=== PATIENT | female | born 1970 | race Caucasian/White ===

== ENCOUNTER 2016-10-16 23:33 | Emergency (ER) | payer OTHER ==
[2016-10-16 23:43] VITALS: RESP 18
--- NOTE | 2016-10-17 01:27 | XR ---
Chest PA and lateral views INDICATION: Difficulty breathing COMPARISON: CXR 10/03/15 FINDINGS: PA and lateral views of the chest are obtained. The cardiomediastinal silhouette and pulmonary vascularity are normal. Lungs are clear, without consolidation, effusion, or pneumothorax. There are no acute osseous findings. IMPRESSION: No radiographic evidence of acute cardiopulmonary disease.
[2016-10-17 01:45] LABS: Basophils # (A) 0.1 k/uL (0-0.2); Basophils % (A) 1 %; CH 31.4; CHCM 33.9; Eosinophils # (A) 0.2 k/uL (0-0.7); Eosinophils % (A) 2 %; HCT 41.3 % (34.0-46.0); HDW 2.55; HGB 13.6 gm/dL (11.4-16.0); Luc # (Auto) 0.34; Luc % (Auto) 4; Lymphocytes % (A) 21 %; MCH 30.8 pg (25.0-35.0); MCV 93.3 fL (80.0-100.0); Mean Platelet Volume 7.3; Monocytes # (A) 0.4 k/uL (0-1.0); Monocytes % (A) 4 %; Neutrophils # (A) 6.7 k/uL (1.3-7.7); Neutrophils % (A) 69 %; RBC 4.43 m/uL (3.80-5.40); RDW 13.3 % (11.5-15.5); WBC 9.7 k/uL (3.8-10.6); WBC (Perox) 10.42
[2016-10-17 01:58] LABS: ALT 39 U/L (9-52); AST 31 U/L (14-36); Alkaline Phosphatase 78 U/L (38-126); Anion Gap 10 mmol/L; Blood Urea Nitrogen 12 mg/dL (7-17); Calcium 9.3 mg/dL (8.4-10.2); Carbon Dioxide 28 mmol/L (22-30); Chloride 105 mmol/L (98-107); Glucose 81 mg/dL (74-99); Non-African American GFR(MDRD) >60 (>60 ml/min/1.73 sqM); Sodium 143 mmol/L (137-145); Total Bilirubin 0.3 mg/dL (0.2-1.3); Total Protein 6.9 g/dL (6.3-8.2)
[2016-10-17 02:02] LABS: Partial Thromboplastin Time 24.7 sec (22.0-30.0); Prothrombin Time 10.5 sec (9.0-12.0)
[2016-10-17 02:10] LABS: Creatine Kinase 42 U/L (30-135)
[2016-10-17 02:23] LABS: Creatine Kinase MB 0.4 ng/mL (0.0-2.4); Troponin I <0.012 ng/mL (0.000-0.034)
--- NOTE | 2016-10-17 03:46 | ED ---
General Adult HPI - General Chief complaint: ENT Stated complaint: Sore Throat/Sores on Tongue Time Seen by Provider: 10/17/16 00:09 Source: patient Mode of arrival: ambulatory Limitations: no limitations - History of Present Illness Initial comments: Planing about sore throat and facial pain and nose plugged shortness of breath chest discomfort and some difficulty breathing. Denies any fever no chills have some phlegm does bring up some sputum with the cough, stuffy nose. Denies any headache no neck stiffness no abdominal pain no frequency urgency dysuria him a no weakness of upper or lower extremity, no sinus symptoms of TIA or CVA - Related Data Home Medications Medication Instructions Recorded Confirmed ALPRAZolam [Xanax] 1 mg PO Q8HR 02/17/15 10/16/16 HYDROcodone/APAP 10-325MG [[place] 1 tab PO Q4HR PRN 02/17/15 10/16/16 10-325] buPROPion XL [Wellbutrin XL] 150 mg PO HS 02/17/15 10/16/16 Sertraline [Zoloft] 150 mg PO DAILY 10/16/16 10/16/16 Previous Rx's Medication Instructions Recorded Omeprazole [PriLOSEC] 20 mg PO AC-BID 14 Days 10/03/15 Amoxicillin 500 mg PO Q8HR #30 ml 10/17/16 Lidocaine Viscous [Xylocaine 15 ml MUCOUS MEM AC-TID #200 ml 10/17/16 Viscous 2%] Nystatin 100,000 Unit/ml Susp 5 ml PO QID #200 ml 10/17/16 [Mycostatin Oral Susp] Allergies Allergy/AdvReac Type Severity Reaction Status Date / Time prochlorperazine edisylate Allergy Rash/Hives Verified 10/03/15 17:48 [From Compazine] prochlorperazine maleate Allergy Rash/Hives Verified 10/03/15 17:48 [From Compazine] albuterol AdvReac Unknown Verified 10/03/15 17:48 morphine AdvReac Vomiting Verified 10/03/15 17:48 Review of Systems ROS Statement: Those systems with pertinent positive or pertinent negative responses have been documented in the HPI. ROS Other: All systems not noted in ROS Statement are negative. Past Medical History Past Medical History: Rheumatoid Arthritis (RA) Additional Past Medical History / Comment(s): pt. states she recently tested positive for rheumatoid but they are not sure if its lupus or arthritis, sinus problems, overall pain History of Any Multi-Drug Resistant Organisms: None Reported Past Surgical History: Section, Cholecystectomy, Hysterectomy Additional Past Surgical History / Comment(s): total hysterectomy 2013 Past Anesthesia/Blood Transfusion Reactions: No Reported Reaction Additional Past Anesthesia/Blood Transfusion Reaction / Comment(s): pt. states after her last surgery pt. states the anesethilogist asked if she ever had a sleep study done Past Psychological History: Anxiety, Depression Smoking Status: Former smoker Past Alcohol Use History: None Reported Past Drug Use History: None Reported Additional Drug Use History / Comment(s): pt. states she quit smoking 6 months ago - Past Family History Mother History Unknown: Yes Family Medical History: Cancer, Chest Pain / Angina, COPD, Coronary Artery Disease (CAD) Additional Family Medical History / Comment(s): brain aneurysms, colon cancer, tachycardia, mother's sisters are diabetic Father History Unknown: Yes Family Medical History: COPD Additional Family Medical History / Comment(s): severe COPD, depression General Exam - General Exam Comments Initial Comments: General: The patient is awake and alert, in no distress, and does not appear acutely ill. Skin: Skin is warm and dry and no rashes or lesions are noted. Eye: Pupils are equal, round and reactive to light, extra-ocular movements are intact; there is normal conjunctiva bilaterally. Ears, nose, mouth and throat: Exam is consistent with a sinusitis and rhinitis, noticed a lesion on one side of the tongue, thrush? Neck: The neck is supple, there is no tenderness or JVD. Cardiovascular: There is a regular rate and rhythm. No murmur, rub or gallop is appreciated. Respiratory: To auscultation bilateral, no wheezing no rhonchi no distress respiratory khanna noticed Gastrointestinal: Soft, non-distended, non-tender abdomen without masses or organomegaly noted. There is no rebound or guarding present. Bowel sounds are unremarkable. Back: There is no tenderness to palpation in the midline. There is no obvious deformity. Musculoskeletal: Normal ROM, no tenderness, There is no pedal edema. There is no calf tenderness or swelling. No cords were appreciated. Neurological: CN II-XII intact, Cranial nerves III through XII are intact. There are no obvious motor or sensory deficits. Coordination appears grossly intact. Speech is normal. Psychiatric: Cooperative, appropriate mood & affect, normal judgment. Limitations: no limitations Course Vital Signs 10/16/16 10/17/16 23:40 03:21 Temperature 98.2 F 97.6 F Pulse Rate 85 64 Respiratory 18 18 Rate Blood Pressure 129/87 139/78 O2 Sat by Pulse 96 98 Oximetry EKG Findings - EKG Comments: EKG Findings:: HEENT rate is normal sinus rhythm ventricular rate is 67 DE interval is 148 QRS duration is 86 QT/QTc is 48/431 review of this EKG showed some T-wave inversion in lead 3 OR lesions are within normal range Medical Decision Making - Lab Data Result diagrams: 10/17/16 01:33 10/17/16 01:33 Lab Results 10/17/16 10/17/16 10/17/16 Range/Units 01:33 01:33 01:33 WBC 9.7 (3.8-10.6) k/uL RBC 4.43 (3.80-5.40) m/uL Hgb 13.6 (11.4-16.0) gm/dL Hct 41.3 (34.0-46.0) % MCV 93.3 (80.0-100.0) fL MCH 30.8 (25.0-35.0) pg MCHC 33.0 (31.0-37.0) g/dL RDW 13.3 (11.5-15.5) % Plt Count 256 (150-450) k/uL Neutrophils % 69 % Lymphocytes % 21 % Monocytes % 4 % Eosinophils % 2 % Basophils % 1 % Neutrophils # 6.7 (1.3-7.7) k/uL Lymphocytes # 2.0 (1.0-4.8) k/uL Monocytes # 0.4 (0-1.0) k/uL Eosinophils # 0.2 (0-0.7) k/uL Basophils # 0.1 (0-0.2) k/uL PT (9.0-12.0) sec INR (<1.1) APTT (22.0-30.0) sec D-Dimer (<0.60) mg/L FEU Sodium 143 (137-145) mmol/L Potassium 4.0 (3.5-5.1) mmol/L Chloride 105 (98-107) mmol/L Carbon Dioxide 28 (22-30) mmol/L Anion Gap 10 mmol/L BUN 12 (7-17) mg/dL Creatinine 0.80 (0.52-1.04) mg/dL Est GFR (MDRD) Af Amer >60 (>60 ml/min/1.73 sqM) Est GFR (MDRD) Non-Af >60 (>60 ml/min/1.73 sqM) Glucose 81 (74-99) mg/dL Calcium 9.3 (8.4-10.2) mg/dL Total Bilirubin 0.3 (0.2-1.3) mg/dL AST 31 (14-36) U/L ALT 39 (9-52) U/L Alkaline Phosphatase 78 (38-126) U/L Total Creatine Kinase 42 (30-135) U/L CK-MB (CK-2) 0.4 (0.0-2.4) ng/mL CK-MB (CK-2) Rel Index 1.0 Troponin I <0.012 (0.000-0.034) ng/mL Total Protein 6.9 (6.3-8.2) g/dL Albumin 4.2 (3.5-5.0) g/dL Influenza Type A RNA (Not Detectd) Influenza Type B (PCR) (Not Detectd) Group A Strep Rapid (Negative) 10/17/16 10/17/16 10/17/16 Range/Units 01:33 01:33 01:33 WBC (3.8-10.6) k/uL RBC (3.80-5.40) m/uL Hgb (11.4-16.0) gm/dL Hct (34.0-46.0) % MCV (80.0-100.0) fL MCH (25.0-35.0) pg MCHC (31.0-37.0) g/dL RDW (11.5-15.5) % Plt Count (150-450) k/uL Neutrophils % % Lymphocytes % % Monocytes % % Eosinophils % % Basophils % % Neutrophils # (1.3-7.7) k/uL Lymphocytes # (1.0-4.8) k/uL Monocytes # (0-1.0) k/uL Eosinophils # (0-0.7) k/uL Basophils # (0-0.2) k/uL PT 10.5 (9.0-12.0) sec INR 1.0 (<1.1) APTT 24.7 (22.0-30.0) sec D-Dimer 0.26 (<0.60) mg/L FEU Sodium (137-145) mmol/L Potassium (3.5-5.1) mmol/L Chloride (98-107) mmol/L Carbon Dioxide (22-30) mmol/L Anion Gap mmol/L BUN (7-17) mg/dL Creatinine (0.52-1.04) mg/dL Est GFR (MDRD) Af Amer (>60 ml/min/1.73 sqM) Est GFR (MDRD) Non-Af (>60 ml/min/1.73 sqM) Glucose (74-99) mg/dL Calcium (8.4-10.2) mg/dL Total Bilirubin (0.2-1.3) mg/dL AST (14-36) U/L ALT (9-52) U/L Alkaline Phosphatase (38-126) U/L Total Creatine Kinase (30-135) U/L CK-MB (CK-2) (0.0-2.4) ng/mL CK-MB (CK-2) Rel Index Troponin I (0.000-0.034) ng/mL Total Protein (6.3-8.2) g/dL Albumin (3.5-5.0) g/dL Influenza Type A RNA Not Detected (Not Detectd) Influenza Type B (PCR) Not Detected (Not Detectd) Group A Strep Rapid Negative (Negative) Disposition Clinical Impression: Sinusitis, Rhinitis, Thrush Disposition: HOME SELF-CARE Condition: Good Instructions: Sinusitis (ED) Prescriptions: Amoxicillin 500 mg PO Q8HR #30 ml Lidocaine Viscous [Xylocaine Viscous 2%] 15 ml MUCOUS MEM AC-TID #200 ml Nystatin 100,000 Unit/ml Susp [Mycostatin Oral Susp] 5 ml PO QID #200 ml
[2016-10-17 04:06] VITALS: BP 119/67; PULSE 70; TEMP 97.1
== END 2016-10-17 04:06 | disposition home or self-care (01) ==
LOC: EC 23:33
DX: J32.9 Chronic sinusitis, unspecified (principal); J31.0 Chronic rhinitis; B37.9 Candidiasis, unspecified; R07.89 Other chest pain; Z88.8 Allergy status to other drugs, medicaments and biological substances; Z88.5 Allergy status to narcotic agent; F41.9 Anxiety disorder, unspecified; F32.9 Major depressive disorder, single episode, unspecified; Z87.891 Personal history of nicotine dependence; Z79.899 Other long term (current) drug therapy
CPT/HCPCS: 36415; 71020; 80053; 82550; 82553; 84484; 85025; 85379; 85610; 85730; 87070; 87081; 87205; 87430; 87502; 93005; 99284

== ENCOUNTER 2017-08-01 15:06 | Emergency (ER) | payer OTHER ==
[2017-08-01 15:15] VITALS: TEMP 97.9
[2017-08-01] MEDS ORDERED: RX INFO: IV CONTRAST WAS GIVEN 1 EACH MISC MISCELLANE PRN (16:00)
--- NOTE | 2017-08-01 16:10 | ED ---
URI HPI - General Chief Complaint: Upper Respiratory Infection Stated Complaint: Cough Time Seen by Provider: 08/01/17 15:36 Source: patient Mode of arrival: ambulatory Limitations: no limitations - History of Present Illness Initial Comments: 47-year-old female patient presents to the emergency department today for complaints of cough and upper respiratory symptoms. Patient states that she has been ill since 07/25/2017. States that it started with sore throat, nasal congestion, and dry cough. She states that the cough has persisted. She states now she coughs so much it hurts in her her chest and back when coughing. She states that the cough is also causing headaches. States that she has a pain to the base of her left skull. Patient states she has a known brain aneurysm on the left side. She states she has had a couple episodes of dizziness over the last few days as well. She denies any visual disturbance, weakness, numbness, or tingling. Denies any confusion or altered mental status. She denies having any fevers with this illness. Patient denies any recent rash, shortness breath, chest pain, abdominal pain, nausea, vomiting, diarrhea, constipation, back pain, numbness, tingling, hematuria, dysuria, urinary urgency, urinary frequency, or any other complaints. - Related Data Home Medications Medication Instructions Recorded Confirmed ALPRAZolam [Xanax] 1 mg PO Q8HR 02/17/15 10/16/16 HYDROcodone/APAP 10-325MG [[place] 1 tab PO Q4HR PRN 02/17/15 10/16/16 10-325] buPROPion XL [Wellbutrin XL] 150 mg PO HS 02/17/15 10/16/16 Sertraline [Zoloft] 150 mg PO DAILY 10/16/16 10/16/16 Previous Rx's Medication Instructions Recorded Omeprazole [PriLOSEC] 20 mg PO AC-BID 14 Days cap 10/03/15 Amoxicillin 500 mg PO Q8HR #30 ml 10/17/16 Lidocaine Viscous 2% [Xylocaine 15 ml MUCOUS MEM AC-TID #200 ml 10/17/16 Viscous] Nystatin 100,000 Unit/ml Susp 5 ml PO QID #200 ml 10/17/16 [Mycostatin Oral Susp] Promethaz-Cod 6.25-10 mg/5 ml 5 ml PO Q6HR PRN #100 ml 08/01/17 [Phenergan with Codeine] predniSONE 50 mg PO DAILY #5 tablet 08/01/17 Allergies Allergy/AdvReac Type Severity Reaction Status Date / Time prochlorperazine edisylate Allergy Rash/Hives Verified 08/01/17 15:15 [From Compazine] prochlorperazine maleate Allergy Rash/Hives Verified 08/01/17 15:15 [From Compazine] albuterol AdvReac Unknown Verified 08/01/17 15:15 morphine AdvReac Vomiting Verified 08/01/17 15:15 Review of Systems ROS Statement: Those systems with pertinent positive or pertinent negative responses have been documented in the HPI. ROS Other: All systems not noted in ROS Statement are negative. Past Medical History Past Medical History: Rheumatoid Arthritis (RA) Additional Past Medical History / Comment(s): pt. states she recently tested positive for rheumatoid but they are not sure if its lupus or arthritis, sinus problems, overall pain History of Any Multi-Drug Resistant Organisms: None Reported Past Surgical History: Section, Cholecystectomy, Hysterectomy Additional Past Surgical History / Comment(s): total hysterectomy 2013 Past Anesthesia/Blood Transfusion Reactions: No Reported Reaction Additional Past Anesthesia/Blood Transfusion Reaction / Comment(s): pt. states after her last surgery pt. states the anesethilogist asked if she ever had a sleep study done Past Psychological History: Anxiety, Depression Smoking Status: Former smoker Past Alcohol Use History: None Reported Past Drug Use History: None Reported - Past Family History Mother History Unknown: Yes Family Medical History: Cancer, Chest Pain / Angina, COPD, Coronary Artery Disease (CAD) Additional Family Medical History / Comment(s): brain aneurysms, colon cancer, tachycardia, mother's sisters are diabetic Father History Unknown: Yes Family Medical History: COPD Additional Family Medical History / Comment(s): severe COPD, depression General Exam Limitations: no limitations General appearance: alert, in no apparent distress, other (This is a well- developed, well-nourished adult female patient in no acute distress. Vital signs upon presentation were temperature 97.9F, pulse 71, respirations 18, blood pressure 154/67, pulse ox 96% on room air.) Head exam: Present: atraumatic, normocephalic, normal inspection Eye exam: Present: normal appearance, PERRL, EOMI. Absent: scleral icterus, conjunctival injection, nystagmus, periorbital swelling ENT exam: Present: normal exam, normal oropharynx, mucous membranes moist Neck exam: Present: normal inspection. Absent: tenderness, meningismus, lymphadenopathy Respiratory exam: Present: normal lung sounds bilaterally. Absent: respiratory distress, wheezes, rales, rhonchi, stridor Cardiovascular Exam: Present: regular rate, normal rhythm, normal heart sounds. Absent: systolic murmur, diastolic murmur, rubs, gallop, clicks GI/Abdominal exam: Present: soft, normal bowel sounds. Absent: distended, tenderness, guarding, rebound, rigid Neurological exam: Present: alert, oriented X3, CN II-XII intact, other ( Strength in all 4 extremities is 5/5.) Psychiatric exam: Present: normal affect, normal mood Skin exam: Present: warm, dry, intact, normal color. Absent: rash Course Vital Signs 08/01/17 15:10 Temperature 97.9 F Pulse Rate 71 Respiratory 18 Rate Blood Pressure 154/67 O2 Sat by Pulse 96 Oximetry Medical Decision Making - Medical Decision Making 47-year-old female patient presented to the emergency department today for complaints of upper respiratory symptoms and cough 1 week. Patient is also complaining of headaches at the left occipital region. Lungs are clear to auscultation with good air movement. Patient is neurologically intact. Chest x -ray was performed and did show no acute cardiopulmonary process. Patient was concerned about her headaches as she does have a history of aneurysm. 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 We did receive reports from the [facility] where patient had an MRA done in November, this did show a tiny 2 mm aneurysm versus infundibulum along the M1 segment of the left MCA at the origin of the anterior temporal polar branch. This has been stable compared to prior exams. I did discuss these results with the patient. As for her upper respiratory infection I told her that this is most likely related to a virus. She will be treated for acute bronchitis as her cough is persistent. She will be given on steroid and cough medication. I instructed her that she must follow -up with her primary care physician for further evaluation as soon as possible. She is instructed to return here immediate he should her she develop any new, worsening, or concerning symptoms. She verbalizes understanding and agrees with this plan. - Radiology Data Radiology results: report reviewed, image reviewed Two-view x-ray of the chest shows a heart and mediastinum are normal. Lungs are clear. Costophrenic angles are clear. There are no hilar masses. Bony thorax is intact. Impression by Dr. Hoyos shows normal chest with no change. CT of the brain with contrast is performed, the ventricles are of normal size. There is no mass effect or midline shift. There is no sign of intracranial hemorrhage. The calvarium is intact. I see no pathologic brain parenchyma enhancement. The patient has a history of any aneurysm. The slight prominence of the tip of the basilar artery that could be a small aneurysm. I have no old exam to compare. Impression by Dr. 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 No acute intracranial abnormality. Old exam comparison could be helpful. No evidence of intracranial hemorrhage or infarct. Disposition Clinical Impression: Acute bronchitis Disposition: HOME SELF-CARE Condition: Good Instructions: Acute Bronchitis (ED) Additional Instructions: Follow-up with her primary care physician for further evaluation as soon as possible. Take medications as directed. Return here immediately for any new, worsening, or concerning symptoms. Prescriptions: predniSONE 50 mg PO DAILY #5 tablet Promethaz-Cod 6.25-10 mg/5 ml [Phenergan with Codeine] 5 ml PO Q6HR PRN #100 ml PRN Reason: Cough Referrals: None,Stated [Primary Care Provider] - 1-2 days Time of Disposition: 18:26
--- NOTE | 2017-08-01 16:47 | CT ---
EXAMINATION TYPE: CT brain w con DATE OF EXAM: 08/01/2017 COMPARISON: NONE HISTORY: Known brain aneurysm. CT DLP: 1026.1 mGycm Automated exposure control for dose reduction was used. CONTRAST: Performed with IV Contrast, patient injected with 100ml mL of Omnipaque 300. FINDINGS: The ventricles have normal size. There is no mass effect nor midline shift. There is no sign of intra cranial hemorrhage. The calvarium is intact. I see no pathologic brain parenchyma enhancement. The pa enrrique has a history of an aneurysm. This slight prominence of the tip of the basilar artery that coul d be a small aneurysm. I have no old exam to compare. 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 NO ACUTE INTRACRANIAL ABNORMALITY. OLD EXAM COMPARISON WOULD BE HELPFUL. NO EVIDENCE OF INTRACRANIAL HEMORRHAGE OR INFARCT.
--- NOTE | 2017-08-01 16:49 | XR ---
EXAMINATION TYPE: XR chest 2V DATE OF EXAM: 08/01/2017 COMPARISON: 10/17/2016 HISTORY: Difficulty breathing TECHNIQUE: Frontal and lateral views of the chest are obtained. FINDINGS: Heart and mediastinum are normal. Lungs are clear. Costophrenic angles are clear. There ar e no hilar masses. Bony thorax is intact. IMPRESSION: Normal chest. No change.
[2017-08-01 18:37] VITALS: BP 147/99; PULSE 75; RESP 16
== END 2017-08-01 18:37 | disposition home or self-care (01) ==
LOC: EC 15:06
DX: J20.9 Acute bronchitis, unspecified (principal); F41.9 Anxiety disorder, unspecified; F32.9 Major depressive disorder, single episode, unspecified; Z86.69 Personal history of other diseases of the nervous system and sense organs; Z87.891 Personal history of nicotine dependence; Z79.899 Other long term (current) drug therapy; Z88.8 Allergy status to other drugs, medicaments and biological substances; Z88.5 Allergy status to narcotic agent
CPT/HCPCS: 99284 ×2; 71046; 70460; Q9967

== ENCOUNTER 2018-01-09 01:01 | Emergency (ER) | payer OTHER ==
[2018-01-09 02:04] LABS: Basophils % (A) 1 %; Eosinophils # (A) 0.2 k/uL (0-0.7); Eosinophils % (A) 3 %; HCT 38.8 % (34.0-46.0); HGB 12.9 gm/dL (11.4-16.0); Lymphocytes # (A) 2.5 k/uL (1.0-4.8); Lymphocytes % (A) 38 %; MCH 30.1 pg (25.0-35.0); MCHC 33.2 g/dL (31.0-37.0); MCV 90.7 fL (80.0-100.0); Mean Platelet Volume 6.9; Monocytes # (A) 0.4 k/uL (0-1.0); Monocytes % (A) 6 %; Neutrophils # (A) 3.4 k/uL (1.3-7.7); Neutrophils % (A) 51 %; Platelet Count 236 k/uL (150-450); RBC 4.28 m/uL (3.80-5.40); RDW 12.9 % (11.5-15.5); WBC 6.6 k/uL (3.8-10.6)
[2018-01-09 02:19] LABS: Albumin 4.1 g/dL (3.5-5.0); Calcium 9.3 mg/dL (8.4-10.2); Potassium 4.1 mmol/L (3.5-5.1); Total Bilirubin 0.1 mg/dL (0.2-1.3); Total Protein 6.4 g/dL (6.3-8.2)
[2018-01-09] MEDS ORDERED: KETOROLAC 30 MG/ML 1 ML VIAL IVP STA (02:19)
--- NOTE | 2018-01-09 02:22 | XR ---
EXAMINATION TYPE: XR knee complete LT DATE OF EXAM: 01/09/2018 COMPARISON: NONE HISTORY: Knee pain TECHNIQUE: 3 views FINDINGS: There is no fracture nor dislocation. Joint spaces are normal. There is no sign of joint ef fusion. IMPRESSION: Normal left knee
[2018-01-09] MEDS ORDERED: ONDANSETRON 4 MG/2 ML VIAL IVP STA (02:33)
--- NOTE | 2018-01-09 02:53 | ED ---
Extremity Problem HPI - General Chief complaint: Extremity Problem,Nontraumatic Stated complaint: Rt foot swelling, high BP Time Seen by Provider: 01/09/18 01:11 Source: patient Mode of arrival: wheelchair Limitations: no limitations - History of Present Illness Initial comments: This patient is a 47-year-old woman who presents to be evaluated for a number of symptoms that have been going on over the past week. The patient has had a couple of days of right ankle swelling and some fullness there. She also is having left knee pain, and does not recall a definite trauma there. She also has noted that her blood pressure has been high. The patient states that she is in the process of working to find a new primary physician, as her previous one is not seeing her anymore. She states that a number of her medications had run out. The patient denies any chest symptoms. MD Complaint: extremity pain, extremity swelling Onset/Timin -: days(s) Location: right History of Same: No Radiation: none Quality: dull Consistency: constant Improves with: nothing Worsens with: nothing - Related Data Home Medications Medication Instructions Recorded Confirmed ALPRAZolam [Xanax] 1 mg PO Q8HR 02/17/15 10/16/16 HYDROcodone/APAP 10-325MG [[place] 1 tab PO Q4HR PRN 02/17/15 10/16/16 10-325] buPROPion XL [Wellbutrin XL] 150 mg PO HS 02/17/15 10/16/16 Sertraline [Zoloft] 150 mg PO DAILY 10/16/16 10/16/16 Previous Rx's Medication Instructions Recorded Omeprazole [PriLOSEC] 20 mg PO AC-BID 14 Days cap 10/03/15 Amoxicillin 500 mg PO Q8HR #30 ml 10/17/16 Lidocaine Viscous 2% [Xylocaine 15 ml MUCOUS MEM AC-TID #200 ml 10/17/16 Viscous] Nystatin 100,000 Unit/ml Susp 5 ml PO QID #200 ml 10/17/16 [Mycostatin Oral Susp] Promethaz-Cod 6.25-10 mg/5 ml 5 ml PO Q6HR PRN #100 ml 08/01/17 [Phenergan with Codeine] predniSONE 50 mg PO DAILY #5 tablet 08/01/17 Hydrochlorothiazide 12.5 mg PO DAILY #15 capsule 01/09/18 Allergies Allergy/AdvReac Type Severity Reaction Status Date / Time prochlorperazine edisylate Allergy Rash/Hives Verified 01/09/18 01:07 [From Compazine] prochlorperazine maleate Allergy Rash/Hives Verified 01/09/18 01:07 [From Compazine] albuterol AdvReac Unknown Verified 01/09/18 01:07 morphine AdvReac Vomiting Verified 01/09/18 01:07 Review of Systems ROS Statement: Those systems with pertinent positive or pertinent negative responses have been documented in the HPI. ROS Other: All systems not noted in ROS Statement are negative. Constitutional: Denies: fever, chills, weakness Eyes: Denies: vision change Respiratory: Denies: cough, dyspnea Cardiovascular: Reports: as per HPI, edema. Denies: chest pain, palpitations, dyspnea on exertion, orthopnea, syncope Gastrointestinal: Denies: abdominal pain, vomiting, diarrhea Genitourinary: Denies: dysuria, hematuria Musculoskeletal: Reports: joint swelling (Right ankle ), arthralgia (left knee) . Denies: back pain Skin: Denies: rash Neurological: Denies: headache, weakness, numbness Psychiatric: Reports: anxiety Past Medical History Past Medical History: Rheumatoid Arthritis (RA) Additional Past Medical History / Comment(s): pt. states she recently tested positive for rheumatoid but they are not sure if its lupus or arthritis, sinus problems, overall pain. brain aneurysm. History of Any Multi-Drug Resistant Organisms: None Reported Past Surgical History: Section, Cholecystectomy, Hysterectomy Additional Past Surgical History / Comment(s): total hysterectomy 2013 Past Anesthesia/Blood Transfusion Reactions: No Reported Reaction Additional Past Anesthesia/Blood Transfusion Reaction / Comment(s): pt. states after her last surgery pt. states the anesethilogist asked if she ever had a sleep study done Past Psychological History: Anxiety, Depression Smoking Status: Former smoker Past Alcohol Use History: None Reported Past Drug Use History: None Reported - Past Family History Mother History Unknown: Yes Family Medical History: Cancer, Chest Pain / Angina, COPD, Coronary Artery Disease (CAD) Additional Family Medical History / Comment(s): brain aneurysms, colon cancer, tachycardia, mother's sisters are diabetic Father History Unknown: Yes Family Medical History: COPD Additional Family Medical History / Comment(s): severe COPD, depression General Exam Limitations: no limitations General appearance: alert, in no apparent distress, obese Head exam: Present: atraumatic, normocephalic Eye exam: Present: normal appearance. Absent: scleral icterus, conjunctival injection ENT exam: Present: normal oropharynx Neck exam: Present: normal inspection Respiratory exam: Present: normal lung sounds bilaterally. Absent: respiratory distress, wheezes, rales, rhonchi, stridor Cardiovascular Exam: Present: regular rate, normal rhythm, normal heart sounds. Absent: systolic murmur, diastolic murmur, rubs, gallop GI/Abdominal exam: Present: soft. Absent: distended, tenderness, guarding, rebound, rigid, pulsatile mass Extremities exam: Present: normal inspection, normal capillary refill, pedal edema (There is mild edema at the ankles, right greater than left.), other ( Patient has slightly decreased flexion of left ankle. There is no evident bony deformity. No point tenderness.). Absent: full ROM, tenderness, calf tenderness Back exam: Present: normal inspection. Absent: CVA tenderness (R), CVA tenderness (L) Neurological exam: Present: alert. Absent: motor sensory deficit Skin exam: Present: warm, dry, intact, normal color. Absent: rash Course Vital Signs 01/09/18 01/09/18 01:04 03:08 Temperature 98.3 F 97.2 F L Pulse Rate 94 80 Respiratory 16 18 Rate Blood Pressure 154/83 133/80 O2 Sat by Pulse 99 96 Oximetry Medical Decision Making - Lab Data Result diagrams: 01/09/18 01:46 01/09/18 01:46 Lab Results 01/09/18 01/09/18 01/09/18 Range/Units 01:46 01:46 01:46 WBC 6.6 (3.8-10.6) k/uL RBC 4.28 (3.80-5.40) m/uL Hgb 12.9 (11.4-16.0) gm/dL Hct 38.8 (34.0-46.0) % MCV 90.7 (80.0-100.0) fL MCH 30.1 (25.0-35.0) pg MCHC 33.2 (31.0-37.0) g/dL RDW 12.9 (11.5-15.5) % Plt Count 236 (150-450) k/uL Neutrophils % 51 % Lymphocytes % 38 % Monocytes % 6 % Eosinophils % 3 % Basophils % 1 % Neutrophils # 3.4 (1.3-7.7) k/uL Lymphocytes # 2.5 (1.0-4.8) k/uL Monocytes # 0.4 (0-1.0) k/uL Eosinophils # 0.2 (0-0.7) k/uL Basophils # 0.0 (0-0.2) k/uL D-Dimer 0.26 (<0.60) mg/L FEU Sodium 141 (137-145) mmol/L Potassium 4.1 (3.5-5.1) mmol/L Chloride 103 (98-107) mmol/L Carbon Dioxide 27 (22-30) mmol/L Anion Gap 11 mmol/L BUN 20 H (7-17) mg/dL Creatinine 0.90 (0.52-1.04) mg/dL Est GFR (CKD-EPI)AfAm 87 (>60 ml/min/1.73 sqM) Est GFR (CKD-EPI)NonAf 76 (>60 ml/min/1.73 sqM) Glucose 104 H (74-99) mg/dL Calcium 9.3 (8.4-10.2) mg/dL Total Bilirubin 0.1 L (0.2-1.3) mg/dL AST 22 (14-36) U/L ALT 38 (9-52) U/L Alkaline Phosphatase 64 (38-126) U/L Total Protein 6.4 (6.3-8.2) g/dL Albumin 4.1 (3.5-5.0) g/dL Disposition Clinical Impression: Hypertension, Knee pain Disposition: HOME SELF-CARE Condition: Fair Instructions: Knee Pain (ED), Hypertension (ED) Prescriptions: Hydrochlorothiazide 12.5 mg PO DAILY #15 capsule Is patient prescribed a controlled substance at d/c from ED?: No Referrals: Katrina Bonner MD [STAFF PHYSICIAN] - 1-2 days
[2018-01-09 03:09] VITALS: BP 133/80; PULSE 80; RESP 18; TEMP 97.2
== END 2018-01-09 03:09 | disposition home or self-care (01) ==
LOC: EC 01:01
DX: M25.562 Pain in left knee (principal); I10 Essential (primary) hypertension; M79.89 Other specified soft tissue disorders; M25.471 Effusion, right ankle; M06.9 Rheumatoid arthritis, unspecified; F41.9 Anxiety disorder, unspecified; F32.9 Major depressive disorder, single episode, unspecified; Z87.891 Personal history of nicotine dependence; Z79.899 Other long term (current) drug therapy; Z88.8 Allergy status to other drugs, medicaments and biological substances; Z88.5 Allergy status to narcotic agent
CPT/HCPCS: 36415; 85379; 80053; 85025; 73562; 99283; 96374; 96375; J2405; J1885

== ENCOUNTER → 2018-09-03 | Outpatient (CLI) | payer OTHER ==
--- NOTE | 2018-09-04 09:11 | MR ---
EXAMINATION TYPE: MR angio head wo con DATE OF EXAM: 09/03/2018 COMPARISON: Outside MRI/MRA of brain November 13, 2015 HISTORY: Cerebral aneurysm, nonruptured TECHNIQUE: Time of flight images focusing on the [place] were performed without contrast.. 2-D and 3-D postprocessing imaging is performed. FINDINGS: A dominant left vertebral artery is redemonstrated. Vertebral arteries are patent to basila r junction. There is no significant focal stenosis or aneurysmal change in the posterior circulation. There are hypoplastic posterior communicating arteries redemonstrated bilaterally. Images of the anterior circulation show patent anterior communicating artery. There is no significant focal stenosis or new aneurysmal change. There is stable prominence in the distal left MCA bifurcati on measuring 2.0 mm anteriorly on image 102 which correlates with branching vessel with subsequent br anching into 2 smaller vessels. No significant change in appearance from prior study. IMPRESSION: Overall stable findings, prominence at left MCA trifurcation in which 2.0 mm aneurysm is not entirely excluded though I favor infundibulum or prominent branching. No new aneurysm is seen.
== END | disposition home or self-care (01) ==
LOC: RADMRIMAIN 11:46
PROVIDERS: ATTEND Neurological Surgery
DX: Z09 Encounter for follow-up examination after completed treatment for conditions other than malignant neoplasm (principal); Z86.79 Personal history of other diseases of the circulatory system
CPT/HCPCS: 70544

== ENCOUNTER → 2018-09-08 | Outpatient (CLI) | payer OTHER ==
--- NOTE | 2018-09-08 17:09 | CONS ---
CONSULTATION This is a consultation for sleep apnea. Estrella is a 48-year-old, obese female patient coming in for sleep apnea evaluation. She has symptoms of sleep apnea including snoring, waking up choking and gasping for air. Restless at nighttime. She grinds her teeth. She wakes up with dry mouth. She has occasional nighttime palpitation and heartburn. She wakes up tired and having difficulty with memory concentration and sleepiness during the day. She is unemployed. Her is disabled. They live in a house. Her sleep hygiene has progressively gotten worse. She has spent lot of time on TV and doing different other activities mainly electronics and she got to the point where she is sleeping late and she is sleeping as far as 5:00 a.m. in the morning and she is getting up 1:00 pm/noon time. She would like to gradually go back to her original sleep schedule. She has history of depression. She is on a combination of Zoloft, BuSpar and Celexa. She has chronic pain related to osteoarthritis and she is on [place] for pain control. She does not fall asleep while driving her car. Current [place] score is at 8. Her weight is up by around 63 pounds over the past 5 years. She drinks 2-3 cups of coffee during the day to keep herself quite stimulated. PAST MEDICAL HISTORY: 1. Obesity. 2. Depression. 3. Hypertension. 4. Plantar fasciitis. 5. Degenerative arthritis. 6. Atopic disease and environmental allergies. 7. Chronic bronchitis. PAST SURGICAL HISTORY: Includes hysterectomy, and a cholecystectomy. DRUG ALLERGIES: TO COMPAZINE AND . SOCIAL HISTORY: She is an ex-smoker. She has a 30 pack year smoking history. She quit smoking for now. No history of alcohol. No history of IV drugs. FAMILY HISTORY: Her mother had colon cancer. She also had brain aneurysm. Her mother also had cardiac problems. No other sleeping disorder in the family. OUTPATIENT MEDICATION LIST: Includes [place] 10, 4 times a day. Ibuprofen 600 4 times a day. Zoloft 100 mg p.o. daily, citalopram 40 mg p.o. daily, citalopram 10 mg p.o. daily, BuSpar exact dose is not known. Omeprazole 20 mg p.o. daily, she is also on a blood pressure medication. She takes [id number] Zyrtec. REVIEW OF SYSTEMS: 12-point review of system was done. Positive findings are mentioned above in history of present illness. Of significance is the absence of any nighttime chest pain or shortness of breath. No dreams. No hallucinations. No cataplexy. No sleep paralysis. No falls. No head injuries. No closed head injury. Note that the patient has gained significant amount of weight. She was in the low 200. She gained up to 263 and currently she is down to 244. BP is 119/90, pulse 92, respirations 16, temperature 98.1, saturation 98% on room air. Height 5 feet, 4 inches, weight is 244, and neck size 15 and 0.5 inches, BMI 41.8. Weight is 244. GENERAL APPEARANCE: Calm, comfortable. Head is atraumatic, normocephalic. NECK: Supple. Mallampati class IV. There is no goiter or neck mass. LUNGS: Clear to auscultation. HEART: Sounds regular rate and rhythm. Normal S1, S2. No S3. No murmurs. ABDOMEN: Soft, nontender. No organomegaly. EXTREMITIES: No edema. No cyanosis or clubbing. NEUROLOGIC: Alert and oriented x3. No focal neurological deficits. PSYCHIATRIC: Negative for active anxiety or depression at this point. SKIN: Negative for any wounds or ulceration. IMPRESSION: 1. Obstructive sleep apnea clinically suspected that needs to be further studied. 2. Hypersomnia. [place] score of 8. 3. Anxiety/depression. 4. Obesity with a BMI of 41.8. 5. Hypertension. 6. Plantar fasciitis. 7. Degenerative arthritis. 8. History of environmental allergies. PLAN: 1. Encourage weight loss. 2. Implement good sleep hygiene measures. 3. Proceed with a screening polysomnogram looking for any significant sleep breathing disorder and treat accordingly. The patient was set up to undergo a polysomnogram many years back. However due to insurance issues, the study was not done. 4. She was asked to maintain a regular sleep-wake cycle. 5. She was asked to eliminate TV watching in her bedroom environment. 6. We will continue to follow. MMODL / IJN: [id number] /
== END ==
LOC: SLEEP 13:50
PROVIDERS: ATTEND Internal Medicine Critical Care Medicine
DX: G47.33 Obstructive sleep apnea (adult) (pediatric) (principal); F32.9 Major depressive disorder, single episode, unspecified; F41.9 Anxiety disorder, unspecified; E66.9 Obesity, unspecified; I10 Essential (primary) hypertension; M72.2 Plantar fascial fibromatosis; M19.90 Unspecified osteoarthritis, unspecified site; Z91.048 Other nonmedicinal substance allergy status; Z68.41 Body mass index [BMI] 40.0-44.9, adult; Z79.899 Other long term (current) drug therapy; Z79.891 Long term (current) use of opiate analgesic; Z79.1 Long term (current) use of non-steroidal anti-inflammatories (NSAID); Z87.891 Personal history of nicotine dependence; Z90.710 Acquired absence of both cervix and uterus; Z90.49 Acquired absence of other specified parts of digestive tract; Z88.8 Allergy status to other drugs, medicaments and biological substances
CPT/HCPCS: 99211

== ENCOUNTER → 2019-04-23 | Outpatient (CLI) | payer OTHER ==
--- NOTE | 2019-04-23 21:58 | MR ---
EXAMINATION TYPE: MR angio head wo con DATE OF EXAM: 04/23/2019 COMPARISON: 09/03/2018 HISTORY: HX of brain aneurysm, Memory loss TECHNIQUE: Time of flight images focusing on the [place] were performed without contrast. FINDINGS: There is arterial flow in the anterior middle and posterior cerebral arteries. There is art erial flow in the vertebrobasilar artery system. There is no evidence of intracranial aneurysm or teo vascularity. There is no mass effect. There is no evidence of hemodynamic stenosis. There is no mass effect. Specifically I see no evidence of left middle cerebral artery aneurysm. IMPRESSION: Negative MR angiography exam of the brain. No evidence of left middle cerebral artery aneurysm. No ad verse change compared to old exam.
== END | disposition home or self-care (01) ==
LOC: RADMRIMAIN 20:46
PROVIDERS: ATTEND Neurological Surgery
DX: I72.5 Aneurysm of other precerebral arteries (principal)
CPT/HCPCS: 70544

== ENCOUNTER → 2019-05-28 | Outpatient (CLI) | payer OTHER ==
--- NOTE | 2019-06-01 08:13 | MM ---
Reason for exam: screening (asymptomatic). Last mammogram was performed 3 years and 2 months ago. History: Patient is postmenopausal. Physical Findings: A clinical breast exam by your physician is recommended on an annual basis and results should be correlated with mammographic findings. MG Screening Mammo w CAD Bilateral CC, MLO, and XCCL view(s) were taken. Prior study comparison: March 13, 2016, bilateral MG screening mammo w CAD. April 23, 2011, mammogram, performed at [facility]. The breast tissue is almost entirely fat. No significant changes when compared with prior studies. ASSESSMENT: Negative, BI-RAD 1 RECOMMENDATION: Routine screening mammogram of both breasts in 1 year. Manage on a clinical basis with regard to bilateral breast tenderness.
== END | disposition home or self-care (01) ==
LOC: RADMAMWWP 11:53
PROVIDERS: ATTEND Family Medicine
DX: Z12.31 Encounter for screening mammogram for malignant neoplasm of breast (principal)
CPT/HCPCS: 77067

== ENCOUNTER 2021-12-20 20:41 | Emergency (ER) | payer OTHER ==
[2021-12-20 20:57] VITALS: BP 126/87; PULSE 118; RESP 22; TEMP 101.1
--- NOTE | 2021-12-20 21:35 | CT ---
EXAMINATION TYPE: CT brain wo con CT DLP: 1196.4 mGycm, Automated exposure control for dose reduction was used. DATE OF EXAM: 12/20/2021 9:13 PM COMPARISON: 09/07/2021. CLINICAL INDICATION:Female, 51 years old with history of HEADACHE, RECENT BLOOD ON BRAIN, HEADACHE, R ECENT BLOOD ON BRAIN TECHNIQUE: Brain: Multiple axial CT images of the brain were obtained without IV contrast. FINDINGS: Brain: Extra-axial spaces: No abnormal extra-axial fluid collections. Ventricular system: Within normal limits Cerebral parenchyma: No acute intraparenchymal hemorrhage or mass effect. The gonsalez-white junction is well differentiated. Cerebellum: Unremarkable. Mass effect: No evidence of midline shift. Intracranial vasculature: unremarkable Soft tissues: Normal. Calvarium/osseous structures: No depressed skull fracture. Paranasal sinuses and mastoid air cells: Mild scattered paranasal sinus disease. Visualized orbits: Orbital contents are intact. IMPRESSION: No acute intracranial process.
== END 2021-12-21 01:00 | disposition left against medical advice (07) ==
LOC: EC 20:41
DX: Z53.21 Procedure and treatment not carried out due to patient leaving prior to being seen by health care provider (principal)
CPT/HCPCS: 70450; 99499

== ENCOUNTER 2021-12-23 09:48 | Emergency (ER) | payer OTHER ==
[2021-12-23 10:18] VITALS: TEMP 98.1
--- NOTE | 2021-12-23 10:59 | ED ---
General Adult HPI - General Chief complaint: ENT Stated complaint: Sore throat/Covid+ Time Seen by Provider: 12/23/21 10:46 Source: patient, RN notes reviewed Mode of arrival: ambulatory Limitations: no limitations - History of Present Illness Initial comments: Patient is a 51-year-old female presents to the emergency room with complaints of severe sore throat. She has a past medical history significant for rheumatoid arthritis, anxiety, depression, hypertension and GERD. She reports that 4 days ago she was having dizziness, headache, sore throat and low-grade fever; consequently she took a home COVID test which was positive. She reports an occasional cough but no shortness of breath. The next day she repeated the test and was again positive. She contacted her primary care provider and was started on Paxlovid. Today is day 3 of the medication which she is tolerating well. She reports overall her symptoms have improved except she reports that her throat has become more sore causing pain with swallowing but she denies any dysphagia. She does report some occasional nausea but denies any vomiting or diarrhea. Her fevers have resolved. - Related Data Home Medications Medication Instructions Recorded Confirmed HYDROcodone/APAP 10-325MG [[place] 1 tab PO QID PRN 02/17/15 09/07/21 10-325] Sertraline [Zoloft] 200 mg PO DAILY 10/16/16 09/07/21 ALPRAZolam [Xanax] 0.5 mg PO BID PRN 09/07/21 09/07/21 ARIPiprazole [Abilify] 10 mg PO DAILY 09/07/21 09/07/21 Amitriptyline HCl [Elavil] 25 mg PO HS 09/07/21 09/07/21 Cetirizine HCl 10 mg PO DAILY 09/07/21 09/07/21 Ibuprofen [Motrin] 600 mg PO Q8HR PRN 09/07/21 09/07/21 Levalbuterol Hfa Inhaler [Xopenex 2 puff INHALATION RT-Q6H PRN 09/07/21 09/07/21 Hfa Inhaler] Omeprazole [PriLOSEC] 20 mg PO BID 09/07/21 09/07/21 Semaglutide [Ozempic] 0.25 mg SQ WE 09/07/21 09/07/21 amLODIPine [Norvasc] 5 mg PO DAILY 09/07/21 09/07/21 hydroCHLOROthiazide [Hydrodiuril] 25 mg PO DAILY 09/07/21 09/07/21 Allergies Allergy/AdvReac Type Severity Reaction Status Date / Time prochlorperazine edisylate Allergy Rash/Hives Verified 09/07/21 22:13 [From Compazine] prochlorperazine maleate Allergy Rash/Hives Verified 09/07/21 22:13 [From Compazine] albuterol AdvReac Unknown Verified 09/07/21 22:13 morphine AdvReac Vomiting Verified 09/07/21 22:13 Review of Systems ROS Statement: Those systems with pertinent positive or pertinent negative responses have been documented in the HPI. ROS Other: All systems not noted in ROS Statement are negative. Past Medical History Past Medical History: GERD/Reflux, Hypertension, Rheumatoid Arthritis (RA) Additional Past Medical History / Comment(s): pt. states she recently tested positive for rheumatoid but they are not sure if its lupus or arthritis, sinus problems, overall pain. brain aneurysm. History of Any Multi-Drug Resistant Organisms: None Reported Past Surgical History: Section, Cholecystectomy, Hysterectomy Additional Past Surgical History / Comment(s): total hysterectomy 2013 Past Anesthesia/Blood Transfusion Reactions: No Reported Reaction Additional Past Anesthesia/Blood Transfusion Reaction / Comment(s): pt. states after her last surgery pt. states the anesethilogist asked if she ever had a sleep study done Past Psychological History: Anxiety, Depression Smoking Status: Never smoker Past Alcohol Use History: None Reported Past Drug Use History: None Reported - Past Family History Mother History Unknown: Yes Family Medical History: Cancer, Chest Pain / Angina, COPD, Coronary Artery Disease (CAD) Additional Family Medical History / Comment(s): brain aneurysms, colon cancer, tachycardia, mother's sisters are diabetic Father History Unknown: Yes Family Medical History: COPD Additional Family Medical History / Comment(s): severe COPD, depression General Exam Limitations: no limitations General appearance: alert, in no apparent distress Head exam: Present: atraumatic, normocephalic, normal inspection Eye exam: Present: normal appearance, PERRL, EOMI. Absent: scleral icterus, conjunctival injection, periorbital swelling ENT exam: Present: mucous membranes moist Expanded Mouth exam: Present: normal external inspection Teeth exam: Present: normal inspection Throat exam: negative: tonsillar erythema, tonsillar exudate Neck exam: Present: tenderness, lymphadenopathy. Absent: full ROM, thyromegaly Respiratory exam: Present: normal lung sounds bilaterally. Absent: respiratory distress, wheezes, rales, rhonchi, stridor Cardiovascular Exam: Present: regular rate, normal rhythm, normal heart sounds. Absent: systolic murmur, diastolic murmur, rubs, gallop, clicks GI/Abdominal exam: Present: soft, normal bowel sounds. Absent: distended, tenderness, guarding, rebound, rigid Extremities exam: Present: normal inspection, full ROM, normal capillary refill. Absent: tenderness, pedal edema, joint swelling, calf tenderness Neurological exam: Present: alert, oriented X3, CN II-XII intact Psychiatric exam: Present: normal affect, normal mood Skin exam: Present: warm, dry, intact, normal color. Absent: rash Course Vital Signs 12/23/21 12/23/21 10:10 11:18 Temperature 98.1 F 98.1 F Pulse Rate 105 H 85 Respiratory 18 14 Rate Blood Pressure 141/75 121/92 O2 Sat by Pulse 97 98 Oximetry Medical Decision Making - Medical Decision Making Exam negative for acute findings. Cultures show influenza A and B and strep all negative. Positive for COVID (repeat testing completed per patient request). No indication for further testing or admission at this time. - Lab Data Lab Results 12/23/21 12/23/21 12/23/21 Range/Units 11:14 11:14 11:14 Coronavirus (PCR) Detected A (Not Detectd) Influenza Type A RNA Not Detected (Not Detectd) Influenza Type B (PCR) Not Detected (Not Detectd) Group A Strep Rapid Negative (Negative) Disposition Clinical Impression: COVID-19 Disposition: HOME SELF-CARE Condition: Fair Instructions (If sedation given, give patient instructions): Coronavirus Disease 2019 (COVID-19), How to Recover from COVID-19 at Home (ED) Additional Instructions: Please return to the Emergency Department if symptoms worsen or any other concerns. Is patient prescribed a controlled substance at d/c from ED?: No Referrals: Estrella Garza MD [Primary Care Provider] - 1-2 days Time of Disposition: 12:09
[2021-12-23 11:21] VITALS: BP 121/92; PULSE 85; RESP 14
== END 2021-12-23 13:02 | disposition home or self-care (01) ==
LOC: EC 09:48
DX: U07.1 COVID-19 (principal); I10 Essential (primary) hypertension; K21.9 Gastro-esophageal reflux disease without esophagitis; Z88.8 Allergy status to other drugs, medicaments and biological substances; Z88.5 Allergy status to narcotic agent; Z79.899 Other long term (current) drug therapy
CPT/HCPCS: 87081; 87430; 87502; 87635; 99283

== ENCOUNTER 2022-02-27 18:08 | Emergency (ER) | payer OTHER ==
[2022-02-27 18:22] VITALS: BP 107/77; PULSE 99; RESP 16; TEMP 98.3
--- NOTE | 2022-02-27 18:48 | XR ---
EXAMINATION TYPE: XR chest 2V DATE OF EXAM: 02/27/2022 COMPARISON: NONE HISTORY: Pain TECHNIQUE: 2 views FINDINGS: Heart and mediastinum are normal. Lungs are clear. Diaphragm is normal. Bony thorax is inta ct. IMPRESSION: Negative CT scan of the brain. No change.
[2022-02-27 18:51] LABS: Basophils # (A) 0.1 k/uL (0-0.2); Basophils % (A) 1 %; Eosinophils # (A) 0.3 k/uL (0-0.7); Eosinophils % (A) 3 %; HCT 45.4 % (34.0-46.0); HGB 15.2 gm/dL (11.4-16.0); Lymphocytes # (A) 1.9 k/uL (1.0-4.8); Lymphocytes % (A) 22 %; MCH 30.3 pg (25.0-35.0); MCHC 33.5 g/dL (31.0-37.0); MCV 90.4 fL (80.0-100.0); Mean Platelet Volume 7.1; Monocytes # (A) 0.3 k/uL (0-1.0); Monocytes % (A) 4 %; Neutrophils # (A) 5.7 k/uL (1.3-7.7); Neutrophils % (A) 68 %; Platelet Count 265 k/uL (150-450); RBC 5.02 m/uL (3.80-5.40); RDW 13.9 % (11.5-15.5); WBC 8.3 k/uL (3.8-10.6)
[2022-02-27 19:03] LABS: Calcium 10.2 mg/dL (8.4-10.2); Magnesium 1.7 mg/dL (1.6-2.3); Potassium 2.9 mmol/L (3.5-5.1); Total Bilirubin 0.4 mg/dL (0.2-1.3); Total Protein 8.2 g/dL (6.3-8.2)
[2022-02-27 19:05] LABS: INR 1.1 (<1.2); Partial Thromboplastin Time 29.5 sec (22.0-30.0); Prothrombin Time 11.4 sec (9.0-12.0)
[2022-02-27] MEDS ORDERED: MAG HYDROX/AL HYDROX/SIMETH 30 ML, HYOSCYAMINE ELIXIR 10 ML, LIDOCAINE VISCOUS 2% 10 ML PO STA ×3 (20:27)
[2022-02-27] MEDS ORDERED: POTASSIUM CHLORIDE ER 20 MEQ TAB.ER PO STA (20:32)
[2022-02-27] MEDS ORDERED: SODIUM CHLORIDE 0.9% 1,000 ML IV STA (20:47)
--- NOTE | 2022-02-27 20:48 | ED ---
General Adult HPI - General Chief complaint: Chest Pain Stated complaint: chest pain Time Seen by Provider: 02/27/22 19:57 Source: patient, RN notes reviewed Mode of arrival: ambulatory Limitations: no limitations - History of Present Illness Initial comments: 51-year-old female presents to the emergency department with complaints of stabbing epigastric pain and burning pain in her chest. Reports pain woke her up out of sleep last night. Complains of mild nausea and has had diarrhea for the past 2 days. States she does take omeprazole twice daily. Has taken Motrin and [place] with no improvement. No aggravating or alleviating factors. Denies fever, chills, headache, blurry vision, difficulty breathing, shortness of breath, vomiting, dysuria, hematuria, or hematochezia. - Related Data Home Medications Medication Instructions Recorded Confirmed HYDROcodone/APAP 10-325MG [[place] 1 tab PO QID PRN 02/17/15 09/07/21 10-325] Sertraline [Zoloft] 200 mg PO DAILY 10/16/16 09/07/21 ALPRAZolam [Xanax] 0.5 mg PO BID PRN 09/07/21 09/07/21 ARIPiprazole [Abilify] 10 mg PO DAILY 09/07/21 09/07/21 Amitriptyline HCl [Elavil] 25 mg PO HS 09/07/21 09/07/21 Cetirizine HCl 10 mg PO DAILY 09/07/21 09/07/21 Ibuprofen [Motrin] 600 mg PO Q8HR PRN 09/07/21 09/07/21 Levalbuterol Hfa Inhaler [Xopenex 2 puff INHALATION RT-Q6H PRN 09/07/21 09/07/21 Hfa Inhaler] Omeprazole [PriLOSEC] 20 mg PO BID 09/07/21 09/07/21 Semaglutide [Ozempic] 0.25 mg SQ WE 09/07/21 09/07/21 amLODIPine [Norvasc] 5 mg PO DAILY 09/07/21 09/07/21 hydroCHLOROthiazide [Hydrodiuril] 25 mg PO DAILY 09/07/21 09/07/21 Previous Rx's Medication Instructions Recorded Esomeprazole Magnesium [NexIUM 20 mg PO DAILY 30 Days #30 tab 02/27/22 24Hr] Allergies Allergy/AdvReac Type Severity Reaction Status Date / Time prochlorperazine edisylate Allergy Rash/Hives Verified 02/27/22 18:22 [From Compazine] prochlorperazine maleate Allergy Rash/Hives Verified 02/27/22 18:22 [From Compazine] albuterol AdvReac Unknown Verified 02/27/22 18:22 morphine AdvReac Vomiting Verified 02/27/22 18:22 Review of Systems ROS Statement: Those systems with pertinent positive or pertinent negative responses have been documented in the HPI. ROS Other: All systems not noted in ROS Statement are negative. Past Medical History Past Medical History: GERD/Reflux, Hypertension, Rheumatoid Arthritis (RA) Additional Past Medical History / Comment(s): pt. states she recently tested positive for rheumatoid but they are not sure if its lupus or arthritis, sinus problems, overall pain. brain aneurysm. History of Any Multi-Drug Resistant Organisms: None Reported Past Surgical History: Section, Cholecystectomy, Hysterectomy Additional Past Surgical History / Comment(s): total hysterectomy 2013 Past Anesthesia/Blood Transfusion Reactions: No Reported Reaction Additional Past Anesthesia/Blood Transfusion Reaction / Comment(s): pt. states after her last surgery pt. states the anesethilogist asked if she ever had a sleep study done Past Psychological History: Anxiety, Depression Smoking Status: Never smoker Past Alcohol Use History: None Reported Past Drug Use History: None Reported - Past Family History Mother History Unknown: Yes Family Medical History: Cancer, Chest Pain / Angina, COPD, Coronary Artery Disease (CAD) Additional Family Medical History / Comment(s): brain aneurysms, colon cancer, tachycardia, mother's sisters are diabetic Father History Unknown: Yes Family Medical History: COPD Additional Family Medical History / Comment(s): severe COPD, depression General Exam Limitations: no limitations General appearance: alert, in no apparent distress Eye exam: Present: normal appearance, PERRL, EOMI. Absent: scleral icterus, conjunctival injection, periorbital swelling ENT exam: Present: normal exam, normal oropharynx, mucous membranes moist Neck exam: Present: normal inspection, full ROM. Absent: meningismus, lymphadenopathy Respiratory exam: Present: normal lung sounds bilaterally. Absent: respiratory distress, wheezes, rales, rhonchi, stridor, chest wall tenderness Cardiovascular Exam: Present: regular rate, normal rhythm, normal heart sounds. Absent: systolic murmur, diastolic murmur, rubs, gallop, clicks GI/Abdominal exam: Present: soft, normal bowel sounds. Absent: distended, tenderness, guarding, rebound, rigid Back exam: Absent: CVA tenderness (R), CVA tenderness (L) Neurological exam: Present: alert, oriented X3, normal gait Psychiatric exam: Present: normal affect, normal mood Skin exam: Present: warm, dry, intact, normal color. Absent: rash Course Vital Signs 02/27/22 18:20 Temperature 98.3 F Pulse Rate 99 Respiratory 16 Rate Blood Pressure 107/77 O2 Sat by Pulse 98 Oximetry - Reevaluation(s) Reevaluation #1: 02/27/22 21:35 Upon reassessment, patient reports significant improvement burning discomfort, though does now complain of an unsettled stomach which she attributes to taking potassium tablets without eating. Will be provided with Zofran and dyspnea. Medical Decision Making - Medical Decision Making This is a 51-year-old female with a past medical history of GERD and hypertension who presents to the emergency department for evaluation of epigastric burning discomfort that radiates up into her chest. Upon exam, patient is well-appearing and in no acute distress. Her physical exam findings are unremarkable. She is given a GI cocktail with some improvement. Laboratory studies were obtained showing hypokalemia attributed to diarrhea. Potassium was supplemented orally. Also given Zofran for mild nausea after taking potassium. EKG shows normal sinus rhythm with incomplete bundle branch block, no ST segment changes. Troponin is negative. Chest x-ray is unremarkable. Given patient's symptoms have exceeded 24 hours from onset and patient is displaying no cardiac abnormalities, this is likely GI related. Patient is instructed to discontinue omeprazole and begin taking Nexium. Instructed on dietary changes. Encouraged to follow up with her PCP for recheck in 24-48 hours. Strict return parameters were discussed in detail. Patient verbalizes understanding and agrees with this plan. Attending: Russell. - Lab Data Result diagrams: 02/27/22 18:28 02/27/22 18:28 Lab Results 02/27/22 02/27/22 02/27/22 Range/Units 18:28 18:28 18:28 WBC 8.3 (3.8-10.6) k/uL RBC 5.02 (3.80-5.40) m/uL Hgb 15.2 (11.4-16.0) gm/dL Hct 45.4 (34.0-46.0) % MCV 90.4 (80.0-100.0) fL MCH 30.3 (25.0-35.0) pg MCHC 33.5 (31.0-37.0) g/dL RDW 13.9 (11.5-15.5) % Plt Count 265 (150-450) k/uL MPV 7.1 Neutrophils % 68 % Lymphocytes % 22 % Monocytes % 4 % Eosinophils % 3 % Basophils % 1 % Neutrophils # 5.7 (1.3-7.7) k/uL Lymphocytes # 1.9 (1.0-4.8) k/uL Monocytes # 0.3 (0-1.0) k/uL Eosinophils # 0.3 (0-0.7) k/uL Basophils # 0.1 (0-0.2) k/uL PT 11.4 (9.0-12.0) sec INR 1.1 (<1.2) APTT 29.5 (22.0-30.0) sec Sodium 136 L (137-145) mmol/L Potassium 2.9 L (3.5-5.1) mmol/L Chloride 94 L (98-107) mmol/L Carbon Dioxide 31 H (22-30) mmol/L Anion Gap 11 mmol/L BUN 17 (7-17) mg/dL Creatinine 1.21 H (0.52-1.04) mg/dL Est GFR (CKD-EPI)AfAm 59 (>60 ml/min/1.73 sqM) Est GFR (CKD-EPI)NonAf 52 (>60 ml/min/1.73 sqM) Glucose 91 (74-99) mg/dL Calcium 10.2 (8.4-10.2) mg/dL Magnesium 1.7 (1.6-2.3) mg/dL Total Bilirubin 0.4 (0.2-1.3) mg/dL AST 35 (14-36) U/L ALT 29 (4-34) U/L Alkaline Phosphatase 98 (38-126) U/L Troponin I (0.000-0.034) ng/mL Total Protein 8.2 (6.3-8.2) g/dL Albumin 5.0 (3.5-5.0) g/dL 02/27/22 Range/Units 18:28 WBC (3.8-10.6) k/uL RBC (3.80-5.40) m/uL Hgb (11.4-16.0) gm/dL Hct (34.0-46.0) % MCV (80.0-100.0) fL MCH (25.0-35.0) pg MCHC (31.0-37.0) g/dL RDW (11.5-15.5) % Plt Count (150-450) k/uL MPV Neutrophils % % Lymphocytes % % Monocytes % % Eosinophils % % Basophils % % Neutrophils # (1.3-7.7) k/uL Lymphocytes # (1.0-4.8) k/uL Monocytes # (0-1.0) k/uL Eosinophils # (0-0.7) k/uL Basophils # (0-0.2) k/uL PT (9.0-12.0) sec INR (<1.2) APTT (22.0-30.0) sec Sodium (137-145) mmol/L Potassium (3.5-5.1) mmol/L Chloride (98-107) mmol/L Carbon Dioxide (22-30) mmol/L Anion Gap mmol/L BUN (7-17) mg/dL Creatinine (0.52-1.04) mg/dL Est GFR (CKD-EPI)AfAm (>60 ml/min/1.73 sqM) Est GFR (CKD-EPI)NonAf (>60 ml/min/1.73 sqM) Glucose (74-99) mg/dL Calcium (8.4-10.2) mg/dL Magnesium (1.6-2.3) mg/dL Total Bilirubin (0.2-1.3) mg/dL AST (14-36) U/L ALT (4-34) U/L Alkaline Phosphatase (38-126) U/L Troponin I <0.012 (0.000-0.034) ng/mL Total Protein (6.3-8.2) g/dL Albumin (3.5-5.0) g/dL - EKG Data EKG shows normal: sinus rhythm Rate: normal EKG Comments: EKG was obtained at 1828 and shows sinus rhythm with incomplete right bundle branch block. Ventricular rate 84, TX interval 157, QRS duration 102, QT/QTC 387/428. Interpretation borderline ECG. - Radiology Data Radiology results: report reviewed, image reviewed Two-view chest x-ray was obtained. Report was reviewed in its entirety. Impression per Dr. Hoyos is negative chest. No change. Disposition Clinical Impression: GERD (gastroesophageal reflux disease), Hypokalemia Disposition: HOME SELF-CARE Condition: Stable Instructions (If sedation given, give patient instructions): Hypokalemia (ED), GERD (Gastroesophageal Reflux Disease) (ED) Additional Instructions: You are being prescribed Nexium to replace your omeprazole. Begin by taking this medication once daily for 4 weeks. Minimize intake of coffee, alcohol, caffeine, and spicy foods. Sleep propped up. Follow-up with your PCP for a recheck in 48 hours. Return to the emergency department immediately if you develop chest pain that radiates to the back, neck, or jaw. Prescriptions: Esomeprazole Magnesium [NexIUM 24Hr] 20 mg PO DAILY 30 Days #30 tab Is patient prescribed a controlled substance at d/c from ED?: No Referrals: Estrella Garza MD [Primary Care Provider] - 1-2 days Time of Disposition: 22:55
[2022-02-27] MEDS ORDERED: ONDANSETRON ODT 4 MG TAB PO STA (22:46)
== END 2022-02-27 22:59 | disposition home or self-care (01) ==
LOC: EC 18:08
DX: K21.9 Gastro-esophageal reflux disease without esophagitis (principal); E87.6 Hypokalemia; I10 Essential (primary) hypertension; M06.9 Rheumatoid arthritis, unspecified; Z79.899 Other long term (current) drug therapy; Z88.8 Allergy status to other drugs, medicaments and biological substances; Z88.5 Allergy status to narcotic agent
CPT/HCPCS: 36415; 71046; 80053; 83735; 84484; 85025; 85610; 85730; 93005; 99285

== ENCOUNTER 2023-01-11 13:55 | Emergency (ER) | payer MEDICARE, OTHER ==
[2023-01-11] MEDS ORDERED: SODIUM CHLORIDE 0.9% 1,000 ML IV STA (14:14)
--- NOTE | 2023-01-11 14:55 | ED ---
Chest Pain HPI - General Chief Complaint: Chest Pain Stated Complaint: chest pain Time Seen by Provider: 01/11/23 14:08 Source: patient, RN notes reviewed, old records reviewed Mode of arrival: ambulatory Limitations: no limitations - History of Present Illness Initial Comments: This is a 52-year-old female to the emergency department for evaluation today. Today she presents for evaluation regards to chest pain. No fevers no travel history no sick contacts. Patient recently had long road trip concern for PE no significant lower extremity edema. Patient has chest pain anterior that his been for 2 days. Persistent. Chest pain of the persistent here in the ER and she is concern for PE patient denies leg pain. Patient states she has had the p ain for a few days now is just presents to the ER today and she is back from travel MD Complaint: chest pain -: days(s) Onset: during rest, during exertion Pain Location: substernal Pain Radiation: none Severity: moderate Severity scale (1-10): 3 Quality: tightness Consistency: constant Improves With: nothing Worsens With: nothing Anginal Symptoms: nausea Treatments Prior to Arrival: none - Related Data Home Medications Medication Instructions Recorded Confirmed HYDROcodone/APAP 10-325MG [[place] 1 tab PO QID PRN 02/17/15 09/07/21 10-325] Sertraline [Zoloft] 200 mg PO DAILY 10/16/16 09/07/21 ALPRAZolam [Xanax] 0.5 mg PO BID PRN 09/07/21 09/07/21 ARIPiprazole [Abilify] 10 mg PO DAILY 09/07/21 09/07/21 Amitriptyline HCl [Elavil] 25 mg PO HS 09/07/21 09/07/21 Cetirizine HCl 10 mg PO DAILY 09/07/21 09/07/21 Ibuprofen [Motrin] 600 mg PO Q8HR PRN 09/07/21 09/07/21 Levalbuterol Hfa Inhaler [Xopenex 2 puff INHALATION RT-Q6H PRN 09/07/21 09/07/21 Hfa Inhaler] Omeprazole [PriLOSEC] 20 mg PO BID 09/07/21 09/07/21 Semaglutide [Ozempic] 0.25 mg SQ WE 09/07/21 09/07/21 amLODIPine [Norvasc] 5 mg PO DAILY 09/07/21 09/07/21 hydroCHLOROthiazide [Hydrodiuril] 25 mg PO DAILY 09/07/21 09/07/21 Previous Rx's Medication Instructions Recorded Esomeprazole Magnesium [NexIUM 20 mg PO DAILY 30 Days #30 tab 02/27/22 24Hr] Allergies Allergy/AdvReac Type Severity Reaction Status Date / Time prochlorperazine edisylate Allergy Rash/Hives Verified 02/27/22 18:22 [From Compazine] prochlorperazine maleate Allergy Rash/Hives Verified 02/27/22 18:22 [From Compazine] albuterol AdvReac Unknown Verified 02/27/22 18:22 morphine AdvReac Vomiting Verified 02/27/22 18:22 Review of Systems ROS Statement: Those systems with pertinent positive or pertinent negative responses have been documented in the HPI. ROS Other: All systems not noted in ROS Statement are negative. EKG Findings - EKG Comments: EKG Findings:: EKG is sinus 80. TX 151 QRS 77 QTc 445 - EKG Results: EKG: interpreted by SHERI Past Medical History Past Medical History: GERD/Reflux, Hypertension, Rheumatoid Arthritis (RA) Additional Past Medical History / Comment(s): pt. states she recently tested positive for rheumatoid but they are not sure if its lupus or arthritis, sinus problems, overall pain. brain aneurysm. History of Any Multi-Drug Resistant Organisms: None Reported Past Surgical History: Section, Cholecystectomy, Hysterectomy Additional Past Surgical History / Comment(s): total hysterectomy 2013 Past Anesthesia/Blood Transfusion Reactions: No Reported Reaction Additional Past Anesthesia/Blood Transfusion Reaction / Comment(s): pt. states after her last surgery pt. states the anesethilogist asked if she ever had a sleep study done Past Psychological History: Anxiety, Depression Smoking Status: Never smoker Past Alcohol Use History: None Reported Past Drug Use History: None Reported - Past Family History Mother History Unknown: Yes Family Medical History: Cancer, Chest Pain / Angina, COPD, Coronary Artery Disease (CAD) Additional Family Medical History / Comment(s): brain aneurysms, colon cancer, tachycardia, mother's sisters are diabetic Father History Unknown: Yes Family Medical History: COPD Additional Family Medical History / Comment(s): severe COPD, depression General Exam Limitations: no limitations General appearance: alert, in no apparent distress, anxious Head exam: Present: atraumatic, normocephalic, normal inspection Eye exam: Present: normal appearance, PERRL, EOMI. Absent: scleral icterus, conjunctival injection, periorbital swelling ENT exam: Present: normal exam, mucous membranes moist Neck exam: Present: normal inspection. Absent: tenderness, meningismus, lymphadenopathy Respiratory exam: Present: normal lung sounds bilaterally. Absent: respiratory distress, wheezes, rales, rhonchi, stridor Cardiovascular Exam: Present: regular rate, normal rhythm, normal heart sounds. Absent: systolic murmur, diastolic murmur, rubs, gallop, clicks GI/Abdominal exam: Present: soft, normal bowel sounds. Absent: distended, tenderness, guarding, rebound, rigid Extremities exam: Present: normal inspection, full ROM, normal capillary refill. Absent: tenderness, pedal edema, joint swelling, calf tenderness Back exam: Present: normal inspection Neurological exam: Present: alert, oriented X3, CN II-XII intact Psychiatric exam: Present: normal affect, normal mood Skin exam: Present: warm, dry, intact, normal color. Absent: rash Course Vital Signs 01/11/23 01/11/23 13:57 17:57 Temperature 98 F 98.1 F Pulse Rate 102 H 89 Respiratory 20 18 Rate Blood Pressure 130/76 125/82 O2 Sat by Pulse 96 97 Oximetry - Reevaluation(s) Reevaluation #1: 01/11/23 22:28 Medical records reviewed Reevaluation #2: 01/11/23 22:28 Patient's chest pain is resolved and she does prefer discharged Reevaluation #3: 01/11/23 22:28 Patient informed results questions answered Reevaluation #4: 01/11/23 22:28 Was pt. sent in by a medical professional or institution? @ -no Did you speak to anyone other than the patient for history? @ -no Did you review nursing and triage notes? @ -agree Were old charts reviewed? @ -no Differential Diagnosis? @ -prior EKG interpreted by me (3pts min.)? @ -yes X-rays interpreted by me (1pt min.)? @ -no CT interpreted by me (1pt min.)? @ -yes U/S interpreted by me (1pt. min.)? @ -no What testing was considered but not performed? (CT, X-rays, U/S, labs)? Why? @ -no What meds were considered but not given? Why? @ -no Did you discuss the management of the patient with other professionals? @ -no Did you reconcile home meds? @ -no Was smoking cessation discussed for >3mins.? @ -no Was critical care preformed (if so, how long)? @ -no Were there social determinants of health that impacted care today? How? (Homelessness, low income, unemployed, alcoholism, drug addiction, transportation, low edu. Level, literacy, decrease access to med. care, detention, rehab)? @ -no Was there de-escalation of care discussed even if they declined? (Discuss DNR or withdrawal of care, Hospice)? @ -no What co-morbidities impacted this encounter? (DM, HTN, Smoking, COPD, CAD, Cancer, CVA, Hep., AIDS, mental health diagnosis, sleep apnea, morbid obesity)? @ -none Was patient admitted / discharged? @ -52 female to the emergency department for evaluation of state. Patient's found to have low potassium here and chest pain, long road trip recently CT negative for PE, patient's potassium was replaced and she can be discharged Discharged Undiagnosed new problem with uncertain prognosis? @ -no Drug Therapy requiring intensive monitoring for toxicity (Heparin, Nitro, Insulin, Cardizem)? @ -no Were any procedures done? @ -no Diagnosis/symptom? @ -Chest pain NOS Acute, or Chronic, or Acute on Chronic? @ -Acute Uncomplicated (without systemic symptoms) or Complicated (systemic symptoms)? @ -uncomplicated Side effects of treatment? @ -no Exacerbation, Progression, or Severe Exacerbation] @ -no Poses a threat to life or bodily function? @ -Yes, ACS or PE, Reevaluation #5: 01/11/23 22:28 Differential Chest Pain: Stable Angina, Unstable Angina, STEMI, NSTEMI Aortic Dissection, Pneumothorax, Musculoskeletal, Esophageal Spasm GERD, Cholecystitis, Pancreatitis, Zoster, this is not meant to be an all-inclusive list. Studies CT head showed chest is negative for acute disease, interpreted by me Chest Pain MDM - MDM 52 female to the emergency department for evaluation of state. Patient's found to have low potassium here and chest pain, long road trip recently CT negative for PE, patient's potassium was replaced and she can be discharged Disposition Clinical Impression: Chest pain, Atypical chest pain, Hypokalemia Disposition: HOME SELF-CARE Condition: Good Instructions (If sedation given, give patient instructions): Chest Pain (ED), Costochondritis (ED) Is patient prescribed a controlled substance at d/c from ED?: No Referrals: Estrella Garza MD [Primary Care Provider] - 1-2 days Time of Disposition: 17:00
[2023-01-11 15:10] LABS: Basophils % (A) 1 %; Eosinophils # (A) 0.2 k/uL (0-0.7); Eosinophils % (A) 3 %; HCT 42.9 % (34.0-46.0); HGB 14.6 gm/dL (11.4-16.0); Lymphocytes # (A) 1.8 k/uL (1.0-4.8); Lymphocytes % (A) 23 %; MCH 29.8 pg (25.0-35.0); MCHC 33.9 g/dL (31.0-37.0); Mean Platelet Volume 7.5; Monocytes # (A) 0.3 k/uL (0-1.0); Monocytes % (A) 4 %; Neutrophils # (A) 5.3 k/uL (1.3-7.7); Neutrophils % (A) 69 %; Platelet Count 209 k/uL (150-450); RBC 4.88 m/uL (3.80-5.40); RDW 13.6 % (11.5-15.5); WBC 7.7 k/uL (3.8-10.6)
[2023-01-11 15:25] LABS: Partial Thromboplastin Time 23.8 sec (22.0-30.0); Prothrombin Time 10.7 sec (9.0-12.0)
[2023-01-11 15:29] LABS: ALT 33 U/L (4-34); AST 36 U/L (14-36); African American GFR (CKD) 80 (>60 ml/min/1.73 sqM); Albumin 4.4 g/dL (3.5-5.0); Alkaline Phosphatase 86 U/L (38-126); Anion Gap 10 mmol/L; Blood Urea Nitrogen 17 mg/dL (7-17); Calcium 9.5 mg/dL (8.4-10.2); Carbon Dioxide 28 mmol/L (22-30); Chloride 98 mmol/L (98-107); Glucose 91 mg/dL (74-99); Magnesium 1.7 mg/dL (1.6-2.3); Non-African American GFR(CKD) 69 (>60 ml/min/1.73 sqM); Phosphorus 3.1 mg/dL (2.5-4.5); Sodium 136 mmol/L (137-145); Total Bilirubin 0.8 mg/dL (0.2-1.3); Total Protein 7.5 g/dL (6.3-8.2)
[2023-01-11 16:07] LABS: Potassium 2.7 mmol/L (3.5-5.1)
--- NOTE | 2023-01-11 16:10 | CT ---
EXAMINATION TYPE: CT angio chest CT DLP: 628.6 mGycm, Automated exposure control for dose reduction was used. DATE OF EXAM: 01/11/2023 3:54 PM COMPARISON: Chest radiograph from same day. CLINICAL INDICATION:Female, 52 years old with history of PE; chest pain TECHNIQUE/CONTRAST: CTA scan of the thorax is performed with IV Contrast, patient injected with 78cc mL of Isovue 370, pu lmonary embolism protocol. MIP images are created and reviewed these are created on a separate works tation.. FINDINGS: Pulmonary Artery: There is no evidence for a filling defect within the pulmonary vasculature to sugge st acute pulmonary embolism. The pulmonary artery is of normal size. Lungs/Pleura: No evidence of focal consolidation, pleural effusion or pneumothorax. Scattered streaky atelectasis throughout the lungs to Airway: Large airways are patent. Heart: Heart is mildly enlarged for size. Mild coronary calcifications present. Vasculature: No evidence of aortic aneurysm. Mediastinum: No gross evidence of adenopathy. Musculoskeletal: Mild degenerative disc disease changes are present throughout the thoracolumbar spin e. Soft Tissues: Unremarkable. Lower neck: No significant findings. Upper Abdomen: Diffuse low-attenuation to the liver parenchyma. Cholecystectomy clips. IMPRESSION: 1. No evidence of pulmonary embolism. 2. No focal consolidation, pleural effusion or pneumothorax.
[2023-01-11] MEDS ORDERED: POTASSIUM CHLORIDE ER 20 MEQ TAB.ER PO STA ×2 (17:19)
[2023-01-11] MEDS ORDERED: KETOROLAC 15 MG/ML 1 ML VIAL IVP STA (17:19)
[2023-01-11 18:59] VITALS: BP 125/82; PULSE 89; RESP 18; TEMP 98.1
== END 2023-01-11 17:57 | disposition home or self-care (01) ==
LOC: EC 13:55
DX: R07.89 Other chest pain (principal); E87.6 Hypokalemia; K21.9 Gastro-esophageal reflux disease without esophagitis; I10 Essential (primary) hypertension; M06.9 Rheumatoid arthritis, unspecified; F41.9 Anxiety disorder, unspecified; F32.A Depression, unspecified; Z88.8 Allergy status to other drugs, medicaments and biological substances; Z88.5 Allergy status to narcotic agent; Z79.899 Other long term (current) drug therapy
CPT/HCPCS: 36415; 93005; 85379; 83880; 80053; 83735; 84100; 84484; 85025; 85610; 85730; 71275; 99285; 96374; 96361; J1885; Q9967

== ENCOUNTER → 2023-10-08 | Outpatient (CLI) | payer MEDICARE ==
--- NOTE | 2023-10-08 17:54 | US ---
EXAMINATION TYPE: US kidneys/renal and bladder DATE OF EXAM: 10/08/2023 COMPARISON: NONE CLINICAL INDICATION: Female, 53 years old with history of N20.0 CALCULUS OF KIDNEY; renal calculus EXAM MEASUREMENTS: Right Kidney: 10.6 x 4.1 x 4.5 cm Left Kidney: 11.3 x 4.7 x 5.3 cm Right Kidney: No hydronephrosis or masses seen Left Kidney: No hydronephrosis or masses seen Bladder: wnl Bilateral Jets seen: Yes There is no evidence for hydronephrosis at this point in time. No nephrolithiasis is seen. No manny s are identified. The urinary bladder is anechoic. Bilateral ureteral jets are seen. IMPRESSION: No evidence for obstructive uropathy or renal colitis.
== END | disposition home or self-care (01) ==
LOC: RADUSWWP 16:30
PROVIDERS: ATTEND Family Medicine
DX: N20.0 Calculus of kidney (principal)
CPT/HCPCS: 76770

== ENCOUNTER 2023-10-18 17:34 | Emergency (ER) | payer MEDICARE ==
--- NOTE | 2023-10-18 18:09 | ED ---
General Adult HPI - General Source: patient Mode of arrival: ambulatory Limitations: no limitations <Eduardo Terry - Last Filed: 10/18/23 18:10> <Kathy Andrade - Last Filed: 10/23/23 00:36> - General Chief complaint: Upper Respiratory Infection Stated complaint: cough Time Seen by Provider: 10/18/23 18:00 - History of Present Illness Initial comments: 53-year-old female presenting to the ED with a chief complaint of cough. Patient states that she has been sick for a week and notes other URI symptoms have mostly resolved however states worsening cough and is worried she may be developing a pneumonia. No fever or chills. (Eduardo Terry) 53-year-old female presents to the emergency department for evaluation of continued cough. She states that this been going on for a week. She states she did initially have sore throat and congestion which is improving. She denies recent fever, chills. She is currently on antibiotics and steroids without any improvement. (Kathy Andrade) - Related Data Home Medications Medication Instructions Recorded Confirmed HYDROcodone/APAP 10-325MG [[facility] 1 tab PO QID PRN 02/17/15 09/07/21 10-325] Sertraline [Zoloft] 200 mg PO DAILY 10/16/16 09/07/21 ALPRAZolam [Xanax] 0.5 mg PO BID PRN 09/07/21 09/07/21 ARIPiprazole [Abilify] 10 mg PO DAILY 09/07/21 09/07/21 Amitriptyline HCl [Elavil] 25 mg PO HS 09/07/21 09/07/21 Cetirizine HCl 10 mg PO DAILY 09/07/21 09/07/21 Ibuprofen [Motrin] 600 mg PO Q8HR PRN 09/07/21 09/07/21 Levalbuterol Hfa Inhaler [Xopenex 2 puff INHALATION RT-Q6H PRN 09/07/21 09/07/21 Hfa Inhaler] Omeprazole [PriLOSEC] 20 mg PO BID 09/07/21 09/07/21 Semaglutide [Ozempic] 0.25 mg SQ WE 09/07/21 09/07/21 amLODIPine [Norvasc] 5 mg PO DAILY 09/07/21 09/07/21 hydroCHLOROthiazide [Hydrodiuril] 25 mg PO DAILY 09/07/21 09/07/21 Previous Rx's Medication Instructions Recorded Esomeprazole Magnesium [NexIUM 20 mg PO DAILY 30 Days #30 tab 02/27/22 24Hr] Benzonatate 100 mg PO TID #15 capsule 10/18/23 Doxycycline [Vibramycin] 100 mg PO BID #14 capsule 10/18/23 predniSONE 50 mg PO DAILY #5 tab 10/18/23 Allergies Allergy/AdvReac Type Severity Reaction Status Date / Time prochlorperazine edisylate Allergy Rash/Hives Verified 02/27/22 18:22 [From Compazine] prochlorperazine maleate Allergy Rash/Hives Verified 02/27/22 18:22 [From Compazine] albuterol AdvReac Unknown Verified 02/27/22 18:22 morphine AdvReac Vomiting Verified 02/27/22 18:22 Review of Systems ROS Other: All systems not noted in ROS Statement are negative. <Eduardo Terry - Last Filed: 10/18/23 18:10> ROS Other: All systems not noted in ROS Statement are negative. <Kathy Andrade - Last Filed: 10/23/23 00:36> ROS Statement: Those systems with pertinent positive or pertinent negative responses have been documented in the HPI. Past Medical History Past Medical History: GERD/Reflux, Hypertension, Rheumatoid Arthritis (RA) Additional Past Medical History / Comment(s): pt. states she recently tested positive for rheumatoid but they are not sure if its lupus or arthritis, sinus problems, overall pain. brain aneurysm. History of Any Multi-Drug Resistant Organisms: None Reported Past Surgical History: Section, Cholecystectomy, Hysterectomy Additional Past Surgical History / Comment(s): total hysterectomy 2013 Past Anesthesia/Blood Transfusion Reactions: No Reported Reaction Additional Past Anesthesia/Blood Transfusion Reaction / Comment(s): pt. states after her last surgery pt. states the anesethilogist asked if she ever had a sleep study done Past Psychological History: Anxiety, Depression Smoking Status: Former smoker Past Alcohol Use History: None Reported Past Drug Use History: None Reported - Past Family History Mother History Unknown: Yes Family Medical History: Cancer, Chest Pain / Angina, COPD, Coronary Artery Disease (CAD) Additional Family Medical History / Comment(s): brain aneurysms, colon cancer, tachycardia, mother's sisters are diabetic Father History Unknown: Yes Family Medical History: COPD Additional Family Medical History / Comment(s): severe COPD, depression <Eduardo Terry - Last Filed: 10/18/23 18:10> General Exam Limitations: no limitations <Eduardo Terry - Last Filed: 10/18/23 18:10> Limitations: no limitations General appearance: alert, in no apparent distress Head exam: Present: atraumatic, normocephalic, normal inspection Eye exam: Present: normal appearance, PERRL, EOMI. Absent: scleral icterus, conjunctival injection, periorbital swelling ENT exam: Present: normal exam, mucous membranes moist Neck exam: Present: normal inspection. Absent: tenderness, meningismus, lymphadenopathy Respiratory exam: Present: wheezes. Absent: respiratory distress, rales, rhonchi, stridor Cardiovascular Exam: Present: regular rate, normal rhythm, normal heart sounds. Absent: systolic murmur, diastolic murmur, rubs, gallop, clicks Extremities exam: Present: normal inspection, full ROM, normal capillary refill. Absent: tenderness, pedal edema, joint swelling, calf tenderness Back exam: Present: normal inspection Neurological exam: Present: alert, oriented X3 Psychiatric exam: Present: normal affect, normal mood Skin exam: Present: warm, dry, intact, normal color. Absent: rash <Kathy Andrade - Last Filed: 10/23/23 00:36> - General Exam Comments Initial Comments: Visual Physical Exam Vital signs reviewed General: Well-appearing, nontoxic, no acute distress. Head: Normocephalic, atraumatic Eyes: PERRLA, EOMI ENT: Airway patent Chest: Nonlabored breathing Skin: No visual rash, normal skin tone Neuro: Alert and oriented 3 Musculoskeletal: No gross abnormalities (Eduardo Terry) Course Vital Signs 10/18/23 10/18/23 17:57 20:47 Temperature 98.6 F 97.9 F Pulse Rate 107 H 95 Respiratory 20 18 Rate Blood Pressure 147/89 126/93 O2 Sat by Pulse 97 97 Oximetry Medical Decision Making <Eduardo Terry - Last Filed: 10/18/23 18:10> <RaymondKathy - Last Filed: 10/23/23 00:36> - Medical Decision Making Quicknote portion performed. Signed Eduardo Terry PA-C (Eduardo Terry) Was pt. sent in by a medical professional or institution (JAMIN Keita, [employer], urgent care, hospital, or [place] health [place] facility...) When possible be specific @ -No Did you speak to anyone other than the patient for history (EMS, parent, family, police, friend...)? What history was obtained from this source @ -No Did you review nursing and triage notes (agree or disagree)? Why? @ -I reviewed and agree with nursing and triage notes Were old charts reviewed (outside hosp., previous admission, EMS record, old EKG, old radiological studies, urgent care reports/EKG's, [place] health care facility records)? Report findings @ -No old charts were reviewed Differential Diagnosis (chest pain, altered mental status, abdominal pain women, abdominal pain men, vaginal bleeding, weakness, fever, dyspnea, syncope, headache, dizziness, GI bleed, back pain, seizure, CVA, palpatations, mental health, musculoskeletal)? @ -COVID, influenza, RSV, pneumonia, this was not all inclusive EKG interpreted by me (3pts min.). @ -None X-rays interpreted by me (1pt min.). @ -Chest x-ray shows no acute process CT interpreted by me (1pt min.). @ -None done U/S interpreted by me (1pt. min.). @ -None done What testing was considered but not performed or refused? (CT, X-rays, U/S, labs)? Why? @ -None What meds were considered but not given or refused? Why? @ -None Did you discuss the management of the patient with other professionals (professionals i.e. JAMIN Keita, [employer]ELOPER, lab, RT, psych nurse, social worker psychiatric, manager financial reporting, teacher, bomb squad officer, behavioral health case manager)? Give summary @ -No Was smoking cessation discussed for >3mins.? @ -No Was critical care preformed (if so, how long)? @ -No Were there social determinants of health that impacted care today? How? (Homelessness, low income, unemployed, alcoholism, drug addiction, transportation, low edu. Level, literacy, decrease access to med. care, fci, rehab)? @ -No Was there de-escalation of care discussed even if they declined (Discuss DNR or withdrawal of care, Hospice)? DNR status @ -No What co-morbidities impacted this encounter? (DM, HTN, Smoking, COPD, CAD, Ca ncer, CVA, ARF, Chemo, Hep., AIDS, mental health diagnosis, sleep apnea, morbid obesity)? @ -None Was patient admitted / discharged? Hospital course, mention meds given and route, prescriptions, significant lab abnormalities, going to OR and other pertinent info. @ -Discharged. Patient presented to the emergency department for evaluation of cough patient tested negative for COVID, influenza, RSV. Chest x-ray shows no acute pneumonia. Given a dose of IV steroids in the ED. She was also provided medication for her cough. Patient will be started on doxycycline and prednisone x 5 days and treatment for asthma exacerbation, medication provided for cough as well. Patient is understanding and agreeable with this plan. Patient stable at time of discharge. Case discussed with Dr. Reich. Undiagnosed new problem with uncertain prognosis? @ -No Drug Therapy requiring intensive monitoring for toxicity (Heparin, Nitro, Insulin, Cardizem)? @ -No Were any procedures done? @ -No Diagnosis/symptom? @ -Tracheobronchitis, asthma exacerbation Acute, or Chronic, or Acute on Chronic? @ -d acute Uncomplicated (without systemic symptoms) or Complicated (systemic symptoms)? @ -Uncomplicated Side effects of treatment? @ -No Exacerbation, Progression, or Severe Exacerbation? @ -No Poses a threat to life or bodily function? How? (Chest pain, [place], [place], pneumonia, PE, COPD, DKA, ARF, appy, cholecystitis, CVA, Diverticulitis, Homicidal, Suicidal, threat to staff... and all critical care pts) @ -No (Kathy Andrade) - Lab Data Lab Results 10/18/23 Range/Units 19:00 Influenza Type A (PCR) Not Detected (Not Detectd) Influenza Type B (PCR) Not Detected (Not Detectd) RSV (PCR) Not Detected (Not Detectd) SARS-CoV-2 (PCR) Not Detected (Not Detectd) Disposition <Eduardo Terry - Last Filed: 10/18/23 18:10> Is patient prescribed a controlled substance at d/c from ED?: No <Kathy Andrade - Last Filed: 10/23/23 00:36> Clinical Impression: Asthma exacerbation Disposition: HOME SELF-CARE Condition: Stable Instructions (If sedation given, give patient instructions): Asthma (DC), Upper Respiratory Infection (ED) Additional Instructions: Please follow up with your primary care provider. Return to the emergency department for new or worsening symptoms. Prescriptions: Benzonatate 100 mg PO TID #15 capsule predniSONE 50 mg PO DAILY #5 tab Doxycycline [Vibramycin] 100 mg PO BID #14 capsule Referrals: Thong Youngblood MD [Primary Care Provider] - 1-2 days
--- NOTE | 2023-10-18 18:43 | XR ---
EXAMINATION TYPE: XR chest 2V DATE OF EXAM: 10/18/2023 6:31 PM CLINICAL INDICATION:Female, 53 years old with history of cough congestion; [facility] COMPARISON: Chest radiographs from 02/27/2022. TECHNIQUE: XR chest 2V Frontal and lateral views of the chest. FINDINGS: Lungs/Pleura: There is no evidence of pleural effusion, focal consolidation, or pneumothorax. Pulmonary vascularity: Unremarkable. Heart/mediastinum: Cardiomediastinal silhouette is unremarkable. Musculoskeletal: No acute osseous pathology. IMPRESSION: No acute cardiopulmonary disease/process.
[2023-10-18] MEDS: BENZONATATE 100 MG CAP PO STA (20:47)
[2023-10-18] MEDS: methylPREDNISolone SOD SUCCI 125 MG/2 ML VIAL IM ONE (20:47)
[2023-10-18 21:04] VITALS: BP 126/93; PULSE 95; RESP 18; TEMP 97.9
== END 2023-10-18 20:52 | disposition home or self-care (01) ==
LOC: EC 17:34
DX: J45.901 Unspecified asthma with (acute) exacerbation (principal); Z87.891 Personal history of nicotine dependence; Z88.8 Allergy status to other drugs, medicaments and biological substances; Z88.5 Allergy status to narcotic agent
CPT/HCPCS: 71046; 87636; 99283

== ENCOUNTER → 2024-01-28 | Outpatient (CLI) | payer MEDICARE ==
--- NOTE | 2024-01-29 11:43 | US ---
EXAMINATION TYPE: US carotid duplex BILAT DATE OF EXAM: 01/28/2024 COMPARISON: CTA head and neck 09/07/2021 CLINICAL INDICATION: Female, 53 years old with history of R42 DIZZINESS GIDDINESS; vertigo TECHNIQUE: Carotid duplex ultrasound examination. Indirect Doppler criteria was utilized. FINDINGS: EXAM MEASUREMENTS: RIGHT: Peak Systolic Velocity (PSV) cm/sec ----- Right CCA: 94.8 ----- Right ICA: 90.9 ----- Right ECA: 139 ICA/CCA ratio: 0.96 RIGHT: End Diastole cm/sec ----- Right CCA: 23.4 ----- Right ICA: 35.7 ----- Right ECA: 31.8 LEFT: Peak Systolic Velocity (PSV) cm/sec ----- Left CCA: 90.9 ----- Left ICA: 97.4 ----- Left ECA: 98.1 ICA/CCA ratio: 1.07 LEFT: End Diastole cm/sec ----- Left CCA: 27.9 ----- Left ICA: 29.2 ----- Left ECA: 15.6 VERTEBRALS (direction of flow): Right Vertebral: Antegrade Left Vertebral: Antegrade Rhythm: Normal PONY TRIMMER NOTES: Mild homogeneous plaque with no significant stenosis Normal ratios with no elevated velocities. IMPRESSION: No ultrasound evidence for hemodynamically significant stenosis of the bilateral visualized carotid a rterial systems. Criteria for Assigning % of Stenosis / Diameter reduction (Estimation based on the indirect measurements of the internal carotid artery velocities (ICA PSV). 1. Normal (no stenosis)=ICA PSV < 125 cm/s: ratio < 2.0: ICA EDV<40 cm/s. 2. Less than 50% stenosis=ICA PSV < 125 cm/s: ratio < 2.0: ICA EDV<40 cm/s. 3. 50 to 69% stenosis=ICA PSV of 125 to 230 cm/s: ration 2.0 ? 4.0: ICA EDV 40-100 cm/s. 4. Greater than 70% stenosis to near occlusion= ICA PSV > 230 cm/s: ratio > 4.0: ICA EDV > 100 cm/s. 5. Near occlusion= ICA PSV velocities may be low or undetectable: variable ratio and ICA EDV. 6. Total occlusion=unable to detect flow.
== END | disposition home or self-care (01) ==
LOC: RADUSWWP 16:27
PROVIDERS: ATTEND Family Medicine
DX: R42 Dizziness and giddiness (principal)
CPT/HCPCS: 93880

== ENCOUNTER → 2024-03-05 | Outpatient (CLI) | payer MEDICARE ==
--- NOTE | 2024-04-03 19:16 | US ---
Estrella Butterfield : 1970 EXAMINATION TYPE: US venous doppler duplex LE BI DATE OF EXAM: 03/05/2024 COMPARISON: NONE CLINICAL INDICATION: 53-year-old female with intermittent right foot swelling for many years. SIDE PERFORMED: Right TECHNIQUE: The lower extremity deep venous system is examined utilizing real time linear array sonog terra with graded compression, doppler sonography and color-flow sonography. VESSELS IMAGED: Common Femoral Vein Deep Femoral Vein Greater Saphenous Vein * Femoral Vein Popliteal Vein Small Saphenous Vein * Proximal Calf Veins (* superficial vessels) Codifier notes: Large body habitus, difficult and limited exam due to patient body habitus. Right Leg: Negative for DVT IMPRESSION: No evidence for DVT within the right lower extremity imaged from the groin to the upper c shelter.
--- NOTE | 2024-04-12 12:23 | XR ---
Patient: Estrella Butterfield R Ordering Physician: Unknown, Unknown ID: [id number] Phone, Pager: Phone: N/A Pager: N/A : 1970 Age/Gender: 53Y, F Primary Location: N/A Procedure: XR chest 2V Study D ate: 03/05/2024 2:17:00 PM EXAMINATION TYPE: XR chest 2V DATE OF EXAM: 03/21/2024 11:48 AM CLINICAL INDICATION: mold exposure COMPARISON: Chest radiographs from 10/18/2023 TECHNIQUE: XR chest 2V Frontal view of the chest. FINDINGS: Lungs/Pleura: There is no evidence of pleural effusion, focal consolidation, or pneumothorax. Pulmonary vascularity: Unremarkable. Heart/mediastinum: Cardiomediastinal silhouette is unremarkable. Musculoskeletal: No acute osseous pathology. IMPRESSION: No acute cardiopulmonary disease/process.
== END | disposition home or self-care (01) ==
LOC: RADXRMAIN 14:00
PROVIDERS: ATTEND Family Medicine
DX: Z77.120 Contact with and (suspected) exposure to mold (toxic)
CPT/HCPCS: 71046

== ENCOUNTER → 2024-05-28 | Outpatient (CLI) | payer MEDICARE ==
--- NOTE | 2024-05-28 10:28 | MR ---
EXAMINATION TYPE: MR angio head wo con DATE OF EXAM: 05/28/2024 COMPARISON: 04/23/2019 HISTORY: Aneurysm follow-up, compare to prior MRA 04-23-19. TECHNIQUE: Time of flight images focusing on the [place] were performed without contrast. FINDINGS: The carotid and vertebral basilar systems are widely patent without significant stenosis or segmental occlusion. There is no sizable aneurysm sac or vascular malformation. IMPRESSION: No significant abnormality seen. No evidence of aneurysm, vascular malformation or occlusive disease. [facility], Workstation: JOSE 05/28/2024 10:26 AM
== END | disposition home or self-care (01) ==
LOC: RADMRIMAIN 06:56
PROVIDERS: ATTEND Family Medicine
DX: I67.1 Cerebral aneurysm, nonruptured (principal)
CPT/HCPCS: 70544

== ENCOUNTER → 2024-08-10 | Outpatient (CLI) | payer MEDICARE ==
--- NOTE | 2024-08-10 15:04 | MM ---
Reason for Exam: Screening (asymptomatic). Last mammogram was performed 5 year(s) and 2 month(s) ago. Patient History: Menarche at age 11. First Full-Term at age 16. Left ovary removed at age 42. Right ovary removed at age 42. Hysterectomy at age 42. Postmenopausal. Patient used Hormonal Contraceptives for 3 years. Niece had breast cancer under age 50. Risk Values: Kristen 5 year model risk: 0.9%. NCI Lifetime model risk: 5.9%. Prior Study Comparison: 04/23/2011 Screening Mammogram, [facility]. 03/13/2016 Bilateral Screening Mammogram, [facility]. 05/28/2019 Bilateral Screening Mammogram, [facility]. Tissue Density: The breasts are almost entirely fatty. Findings: Analyzed By CAD. Benign-appearing bilateral axillary lymph nodes are redemonstrated. There is no suspicious new group of microcalcifications or new suspicious mass in either breast. Overall Assessment: Negative, BI-RAD 1 Management: Screening Mammogram of both breasts in 1 year. . Patient should continue monthly self-breast exams. A clinical breast exam by your physician is recommended on an annual basis. This exam should not preclude additional follow-up of suspicious palpable abnormalities. Note on Kristen scores and lifetime risk: 1. A Kristen score greater than 3% is considered moderate risk. If this is the case, consider specialist referral to assess eligibility for a risk reducing agent. 2. If overall lifetime risk for the development of breast cancer is 20% or higher, the patient may qualify for future screening with alternating mammogram and breast MRI. [facility], , 08/10/2024 3:02 PM. Electronically signed and approved by: Rohan Pena M.D.
--- NOTE | 2024-08-10 15:11 | BD ---
EXAMINATION TYPE: Axial Bone Density DATE OF EXAM: 08/10/2024 CLINICAL HISTORY: 54 years old Female. ICD-10 CODE: Z78.0 Postmenopausal , Additional History: Height: 63 Weight: 282.8 FRAX RISK QUESTIONS: Alcohol (3 or more units per day): no Family History (Parent hip fracture): no Glucocorticoids (More than 3mos): no (Ex: prednisone, prednisolone, methylprednisolone, dexamethasone, and hydrocortisone). History of Fracture in Adulthood: no Secondary Osteoporosis: 1. Type 1 Diabetes: no 2. Hyperthyroidism: no 3. Menopause before 45: no 4. Malnutrition: no 5. Chronic liver disease: no Rheumatoid Arthritis: no Current Tobacco Use: no RISK FACTORS HISTORY OF: Hip Fracture (Right/Left): no Spine Fracture: no History of Wrist Fracture: no Surgery to Spine/Hip(right/left)/Wrist (right/left): no MEDICATIONS: Thyroid Medications: no Osteoporosis Medications: no EXAM MEASUREMENTS: Bone mineral densitometry was performed using the [employer] System. Bone mineral density as measured about the Lumbar spine is: ----- L1-L4(G/cm2): 1.073 T Score Values are as follows: ----- L1: -0.1 ----- L2: -1.5 ----- L3: -1.4 ----- L4: -0.7 ----- L1-L4: -0.9 Z Score Values are as follows: ----- L1: -0.4 ----- L2: -1.7 ----- L3: -1.7 ----- L4: -1.0 ----- L1-L4: -1.2 Baseline Study Bone mineral density about the R hip (g/cm2): 0.971 Bone mineral density about the L hip (g/cm2): 1.041 T Score values are as follows: -----R Neck: -1.2 -----L Neck: -1.0 -----R Total: -0.3 -----L Total: 0.3 Z Score values are as follows: -----R Neck: -0.9 -----L Neck: -0.7 -----R Total: -0.4 -----L Total: 0.1 Baseline Study FRAX%s: The graph provided illustrates a 5.2% chance for a major osteoporotic fx and a 0.3% chance fo r the hips probability for fx in 10 years time. IMPRESSION: Osteopenia (T Score between -2.5 and -1) femoral neck level right hip. There is slightly increased risk of fracture and the patient may be considered for treatment. Re-Screen 2-5 years. NOTE: T-SCORE=SD OF THE YOUNG ADULT MEAN. [facility], , 08/10/2024 3:09 PM
--- NOTE | 2024-08-10 15:40 | XR ---
EXAMINATION TYPE: XR lumbosacral spine min 4V DATE OF EXAM: 08/10/2024 3:13 PM COMPARISON: 03/01/2015 CLINICAL INDICATION: Female, 54 years old with history of [id number] sciatica, pain TECHNIQUE: 5 view(s) obtained. FINDINGS: There appear to be 6 lumbar type vertebral bodies. No spondylolytic defects are evident. Vertebral lana dy heights are preserved. Mild disc space narrowing is present between the 2 lowest lumbar vertebral levels which may be an interval change. Plain film correlation would be recommended prior to surgical intervention. Disc heights are otherwise preserved. MRI could be performed if additional evaluation be of benefit. IMPRESSION: 1. Mild lower disc level narrowing. [facility], , 08/10/2024 3:37 PM
== END | disposition home or self-care (01) ==
LOC: RADMAMWWP 13:55
PROVIDERS: ATTEND Family Medicine
DX: Z12.31 Encounter for screening mammogram for malignant neoplasm of breast (principal); Z78.0 Asymptomatic menopausal state; Z90.722 Acquired absence of ovaries, bilateral; Z80.3 Family history of malignant neoplasm of breast; R92.313 Mammographic fatty tissue density, bilateral breasts; M85.89 Other specified disorders of bone density and structure, multiple sites; M51.16 Intervertebral disc disorders with radiculopathy, lumbar region
CPT/HCPCS: 72110; 77063; 77067; 77080